=== PATIENT | female | born 1955 | race American Indian/Alaskan Native ===

== ENCOUNTER 2017-04-05 13:27 | Inpatient (IN) | payer OTHER ==
[2017-04-05 14:05] VITALS: BMI 47.0
--- NOTE | 2017-04-05 14:15 | C.PDOC ---
History Of Present Illness 61 year old female who presents to the ER with a complaint of swelling to the legs that has worsened over the last 3 weeks. Patient reports she has dyspnea on exertion and is unable to lay flat due to SOB. Patient was given lasix by her PMD last week with no relief to symptoms. Denies chest pain or weakness/ numbness to the lower extremities. Time Seen by Provider: 04/05/17 14:13 Chief Complaint (Nursing): Medical Clearance History Per: Patient History/Exam Limitations: no limitations Onset/Duration Of Symptoms: Days (3 weeks), Gradual Current Symptoms Are (Timing): Still Present Recent travel outside of the [place]: No Past Medical History Reviewed: Historical Data, Nursing Documentation, Vital Signs Vital Signs: Last Vital Signs Temp 97.3 F L 04/08/17 16:00 Pulse 63 04/08/17 16:00 Resp 20 04/08/17 16:00 BP 156/84 H 04/08/17 17:45 Pulse Ox 100 04/08/17 16:00 - Medical History PMH: Anemia, Anxiety, Bronchitis, Diabetes, Gastritis, HTN, Hypercholesterolemia , Pancreatitis, Peripheral Edema, Pneumonia, Chronic Kidney Disease Surgical History: Endoscopy - [facility] Procedures INSERT INFUSION DEV IN R INT JUGULAR VEIN, PERC (08/19/16) INSERTION OF ENDOTRACHEAL AIRWAY INTO TRACHEA, VIA OPENING (08/19/16) INTRODUCTION OF VASOPRESSOR INTO PERIPH VEIN, PERC APPROACH (08/19/16) PERFORMANCE OF CARDIAC OUTPUT, SINGLE, MANUAL (08/19/16) RESPIRATORY VENTILATION, GREATER THAN 96 CONSECUTIVE HOURS (08/19/16) Family History: States: Unknown Family Hx - Social History Hx Alcohol Use: No Hx Substance Use: No - Immunization History Hx Tetanus Toxoid Vaccination: No Hx Influenza Vaccination: No Hx Pneumococcal Vaccination: No Review Of Systems Constitutional: Negative for: Fever, Chills Cardiovascular: Negative for: Chest Pain, Palpitations Respiratory: Positive for: Shortness of Breath Gastrointestinal: Negative for: Nausea, Vomiting, Abdominal Pain, Diarrhea Genitourinary: Negative for: Dysuria Musculoskeletal: Positive for: Other (Swelling to lower extremities) Neurological: Negative for: Weakness, Numbness Physical Exam - Physical Exam Appears: Non-toxic Skin: Normal Color, Warm, Dry Head: Atraumatic, Normacephalic Oral Mucosa: Moist Chest: Symmetrical, No Tenderness Cardiovascular: Rhythm Regular, No Murmur Respiratory: Rales (Bilateral to bases), No Rhonchi, No Wheezing Gastrointestinal/Abdominal: Soft, No Tenderness Extremity: Normal ROM, No Tenderness, Pedal Edema (3+ pitting bilaterally) Neurological/Psych: Oriented x3, Normal Speech, Normal Cognition ED Course And Treatment - Laboratory Results Result Diagrams: 04/05/17 14:54 04/07/17 13:57 O2 Sat by Pulse Oximetry: 98 (Room air) Pulse Ox Interpretation: Normal Medical Decision Making Medical Decision Making: EKG, blood work, CXR, and urinalysis ordered. EKG: NSR 64, LBBB, no STEMI Disposition - Disposition Disposition: HOSPITALIZED Disposition Time: 16:01 Condition: STABLE - Clinical Impression Clinical Impression: Systolic dysfunction with acute on chronic heart failure - Scribe Statement The provider has reviewed the documentation as recorded by the Scribderrick Wetzel All medical record entries made by the Scribe were at my direction and personally dictated by me. I have reviewed the chart and agree that the record accurately reflects my personal performance of the history, physical exam, medical decision making, and the department course for this patient. I have also personally directed, reviewed, and agree with the discharge instructions and disposition.
[2017-04-05 15:00] LABS: BASO # 0.1 K/uL (0.0-0.2); BASO % 1.5 % (0.0-2.0); EOS # 0.1 K/uL (0.0-0.7); EOS % 2.1 % (0.0-4.0); HEMOGLOBIN 11.9 g/dL (11.0-16.0); LYMPH # 1.2 K/uL (1.0-4.3); LYMPH % 23.3 % (20.0-40.0); MEAN CELL VOLUME 83.6 fL (81.0-99.0); MEAN CORPUSCULAR HEMOGLOBIN 26.4 pg (27.0-31.0); MEAN CORPUSCULAR HGB CONC 31.6 g/dL (33.0-37.0); MEAN PLATELET VOLUME 8.7 fL (7.2-11.7); MONO # 0.7 K/uL (0.0-0.8); MONO % 12.9 % (0.0-10.0); NEUT # 3.2 K/uL (1.8-7.0); NEUT % 60.2 % (50.0-75.0); NRBC % 0.3 % (0.0-2.0); RBC 4.51 Mil/uL (3.80-5.20); RED CELL DISTRIBUTION WIDTH 17.1 % (11.5-14.5); WHITE BLOOD COUNT 5.3 K/uL (4.8-10.8)
[2017-04-05 15:13] LABS: GFR AFRICAN-AMERICAN > 60; GFR NON-AFRICAN AMERICAN > 60
[2017-04-05 15:14] LABS: ALB/GLOB RATIO 0.8 (1.0-2.1); ALT/SGPT 33 U/L (9-52); AST/SGOT 28 U/L (14-36); BLOOD UREA NITROGEN 17 mg/dL (7-17); CALCIUM 8.8 mg/dl (8.6-10.4)
[2017-04-05 15:21] LABS: B-TYPE NATRIURETIC PEPTIDE 2280 pg/mL (0-900)
--- NOTE | 2017-04-05 16:03 | RAD ---
HISTORY: fever COMPARISON: 09/05/2016 TECHNIQUE: Chest PA and lateral FINDINGS: LUNGS: Small right pleural effusion with patchy bibasilar airspace opacities. Venous congestion. Right hilar prominence. Biapical pleural thickening with upper lobe granulomatous changes. PLEURA: As above. CARDIOVASCULAR: Cardiomegaly. Tortuous ectatic aorta. OSSEOUS STRUCTURES: No significant abnormalities. VISUALIZED UPPER ABDOMEN: Normal. OTHER FINDINGS: None. IMPRESSION: Small right pleural effusion with patchy bibasilar airspace opacities. Venous congestion. Right hilar prominence. Biapical pleural thickening with upper lobe granulomatous changes.
[2017-04-05 19:12] LABS: SQUAMOUS EPITHIAL 1 /hpf (0-5); URINE BILIRUBIN NEGATIVE (NEGATIVE); URINE CLARITY Clear (Clear); URINE COLOR Straw (YELLOW); URINE GLUCOSE (UA) NORMAL (Normal); URINE LEUKOCYTE ESTERASE NEG Leu/uL (Negative); URINE NITRATE NEGATIVE (NEGATIVE); URINE PROTEIN NEGATIVE (NEGATIVE); URINE UROBILINOGEN NORMAL mg/dL (0.2-1.0)
[2017-04-05 19:20] LABS: URINE BLOOD TRACE (NEGATIVE)
[2017-04-05] MEDS: (Novolin R) Insulin Human Regular 100 units/ml vial SC SCH (22:49)
--- NOTE | 2017-04-05 23:13 | CP.PCM.HP ---
History of Present Illness - History of Present Illness History of Present Illness: Yon complain: leg edema, shortness of breath HPI: 61 year old AA female well known to me with h/o CAD, HTN, HYPERLIPIDEMIA, S /P ANGIOPLASTY , complint with diet, medication and follow up who presents to the ER with a complaint of swelling to the legs that has worsened over the last 3 weeks. Patient reports she has dyspnea on exertion and is unable to lay flat due to SOB. Patient was given lasix by me last week with no relief to symptoms. Denies chest pain or weakness/numbness to the lower extremities. Present on Admission - Present on Admission Any Indicators Present on Admission: Yes Review of Systems - Review of Systems Systems not reviewed;Unavailable: Acuity of Condition - Constitutional Constitutional: absent: As Per HPI, Anorexia, Chills, Daytime Sleepiness, Excessive Sweating, Fatigue, Fever, Frequent Falls, Headache, Increased Appetite , Lethargy, Malaise, Night Sweats, Snoring, Sleep Apnea, Weight Gain, Weight Loss, Weakness, Other - EENT Eyes: absent: As Per HPI, Blind Spots, Blurred Vision, Change in Vision, Decreased Night Vision, Diplopia, Discharge, Dry Eye, Exophthalmos, Floaters, Irritation, Itchy Eyes, Loss of Peripheral Vision, Pain, Photophobia, Requires Corrective Lenses, Sees Flashes, Spots in Vision, Tunnel Vision, Other Visual Disturbances, Loss of Vision, Other Nose/Mouth/Throat: absent: As Per HPI, Epistaxis, Nasal Congestion, Nasal Discharge, Nasal Obstruction, Nasal Trauma, Nose Pain, Post Nasal Drip, Sinus Pain, Sinus Pressure, Bleeding Gums, Change in Voice, Dental Pain, Dry Mouth, Dysphagia, Halitosis, Hoarsness, Lip Swelling, Mouth Lesions, Mouth Pain, Odynophagia, Sore Throat, Throat Swelling, Tongue Swelling, Facial Pain, Neck Pain, Neck Mass, Other - Cardiovascular Cardiovascular: Dyspnea, Dyspnea on Exertion, Leg Edema - Respiratory Respiratory: Dyspnea - Gastrointestinal Gastrointestinal: absent: As Per HPI, Abdominal Pain, Belching, Bloating, Change in Bowel Habits, Change in Stool Character, Coffee Ground Emesis, Constipation, Cramping, Diarrhea, Dyspepsia, Dysphagia, Early Satiety, Excessive Flatus, Fecal Incontinence, Heartburn, Hematemesis, Hematochezia, Loose Stools, Melena, Nausea, Odynophagia, Temesmus, Vomiting, Other - Genitourinary Genitourinary: Urinary Frequency. absent: As Per HPI, Change in Urinary Stream , Difficulty Urinating, Dysuria, Flank Pain, Hematuria, Pyuria, Nocturia, Urinary Incontinence, Urinary Hesitance, Urinary Urgency, Voiding Freq/Small Amts, Freq UTI, Hx Renal/Bladder Calculi, Hx /Renal Surgery, Bladder Distension, Other Past Patient History - Past Medical History & Family History Past Medical History?: Yes - Past Social History Smoking Status: Never Smoked - CARDIAC Hx Hypercholesterolemia: Yes Hx Hypertension: Yes Hx Peripheral Edema: Yes - PULMONARY Hx Bronchitis: Yes Hx Pneumonia: Yes - NEUROLOGICAL Hx Neurological Disorder: No - HEENT Hx HEENT Problems: No - RENAL Hx Chronic Kidney Disease: Yes - ENDOCRINE/METABOLIC Hx Endocrine Disorders: Yes Hx Diabetes Mellitus Type 1: Yes - HEMATOLOGICAL/ONCOLOGICAL Hx Anemia: Yes - INTEGUMENTARY Hx Dermatological Problems: Yes Other/Comment: HX: LEFT BREAST LUMPECTOMY X3 - MUSCULOSKELETAL/RHEUMATOLOGICAL Hx Musculoskeletal Disorders: Yes Hx Back Pain: Yes - GASTROINTESTINAL Hx Gastritis: Yes Hx Pancreatitis: Yes - GENITOURINARY/GYNECOLOGICAL Hx Genitourinary Disorders: Yes Other/Comment: PT. HAD LEFT KIDNEY SURGERY AND "I HAD A TUBE OUT MY BACK TO A BAG." - PSYCHIATRIC Hx Anxiety: Yes Hx Substance Use: No - SURGICAL HISTORY Hx Surgeries: Yes Other/Comment: "kidney surgery," lumpectomy breast left. Fibroid removal - ANESTHESIA Hx Anesthesia: Yes Hx Anesthesia Reactions: No Hx Malignant Hyperthermia: No Meds Allergies/Adverse Reactions: Allergies Allergy/AdvReac Type Severity Reaction Status Date / Time No Known Allergies Allergy Verified 04/05/17 14:04 Physical Exam - Constitutional Appears: No Acute Distress - Head Exam Head Exam: ATRAUMATIC, NORMAL INSPECTION, NORMOCEPHALIC - Eye Exam Eye Exam: EOMI, Normal appearance, PERRL Pupil Exam: NORMAL ACCOMODATION, PERRL - ENT Exam ENT Exam: Mucous Membranes Moist, Normal Exam - Respiratory Exam Respiratory Exam: Decreased Breath Sounds, Rales - Cardiovascular Exam Cardiovascular Exam: REGULAR RHYTHM - GI/Abdominal Exam GI & Abdominal Exam: Normal Bowel Sounds, Soft. absent: Tenderness - Extremities Exam Extremities exam: Positive for: pedal edema - Neurological Exam Neurological exam: Alert, CN II-XII Intact, Normal Gait, Oriented x3, Reflexes Normal - Psychiatric Exam Psychiatric exam: Normal Affect, Normal Mood - Skin Skin Exam: Erythema, Pallor, Warm Results - Vital Signs Recent Vital Signs: Last Vital Signs Temp 98.0 F 04/05/17 20:30 Pulse 60 04/05/17 20:30 Resp 20 04/05/17 20:30 BP 158/91 H 04/05/17 22:48 Pulse Ox 99 04/05/17 20:30 - Labs Result Diagrams: 04/05/17 14:54 04/05/17 14:54 Labs: Laboratory Results - last 24 hr 04/05/17 04/05/17 18:51 21:40 POC Glucose (mg/dL) 208 H Urine Color Straw Urine Clarity Clear Urine pH 6.0 Ur Specific [place] 1.006 Urine Protein Negative Urine Glucose (UA) Normal Urine Ketones Negative Urine Blood Trace H Urine Nitrate Negative Urine Bilirubin Negative Urine Urobilinogen Normal Ur Leukocyte Esterase Neg Urine WBC (Auto) < 1 Urine RBC (Auto) 1 Ur Squamous Epith Cells 1 Assessment & Plan (1) Pedal edema Status: Acute (2) CHF (congestive heart failure) Status: Acute (3) Coronary artery disease Status: Acute (4) Hypertension Status: Acute
[2017-04-06] MEDS: Albuterol-Ipratrop 3 mg / 0.5 (3 ml) UD INH SCH ×3 (07:46→20:33)
[2017-04-06] MEDS: (Novolin R) Insulin Human Regular 100 units/ml vial SC SCH ×4 (08:52→21:47)
[2017-04-06] MEDS: Enoxaparin 40 mg Syringe SC SCH (09:19)
[2017-04-06] MEDS: Potassium Chloride 20 mEq ER Tab PO SCH (09:20)
--- NOTE | 2017-04-06 11:45 | CP.PCM.CON ---
History of Present Illness - History of Present Illness History of Present Illness: I was asked to see patient by Dr. Nieves. Patient is a 61 year old female with h/o dilated cardiomyopathy, HTN who presents with dyspnea and edema. She has had previous history of CHF and has been managed medically. Patient reports progressive lwoer extremity edema. Symtpoms are assocaited with dyspnea. The patient denies chest pain. Review of Systems - Constitutional Constitutional: absent: As Per HPI, Anorexia, Chills, Daytime Sleepiness, Excessive Sweating, Fatigue, Fever, Frequent Falls, Headache, Increased Appetite , Lethargy, Malaise, Night Sweats, Snoring, Sleep Apnea, Weight Gain, Weight Loss, Weakness, Other - EENT Eyes: absent: As Per HPI, Blind Spots, Blurred Vision, Change in Vision, Decreased Night Vision, Diplopia, Discharge, Dry Eye, Exophthalmos, Floaters, Irritation, Itchy Eyes, Loss of Peripheral Vision, Pain, Photophobia, Requires Corrective Lenses, Sees Flashes, Spots in Vision, Tunnel Vision, Other Visual Disturbances, Loss of Vision, Other Ears: absent: As Per HPI, Decreased Hearing, Ear Discharge, Ear Pain, Tinnitus, Abnormal Hearing, Disequilibrium, Dizziness, Other Nose/Mouth/Throat: absent: As Per HPI, Epistaxis, Nasal Congestion, Nasal Discharge, Nasal Obstruction, Nasal Trauma, Nose Pain, Post Nasal Drip, Sinus Pain, Sinus Pressure, Bleeding Gums, Change in Voice, Dental Pain, Dry Mouth, Dysphagia, Halitosis, Hoarsness, Lip Swelling, Mouth Lesions, Mouth Pain, Odynophagia, Sore Throat, Throat Swelling, Tongue Swelling, Facial Pain, Neck Pain, Neck Mass, Other - Cardiovascular Cardiovascular: Dyspnea, Dyspnea on Exertion, Edema - Gastrointestinal Gastrointestinal: absent: As Per HPI, Abdominal Pain, Belching, Bloating, Change in Bowel Habits, Change in Stool Character, Coffee Ground Emesis, Constipation, Cramping, Diarrhea, Dyspepsia, Dysphagia, Early Satiety, Excessive Flatus, Fecal Incontinence, Heartburn, Hematemesis, Hematochezia, Loose Stools, Melena, Nausea, Odynophagia, Temesmus, Vomiting, Other - Genitourinary Genitourinary: absent: As Per HPI, Change in Urinary Stream, Difficulty Urinating, Dysuria, Flank Pain, Hematuria, Pyuria, Nocturia, Urinary Incontinence, Urinary Frequency, Urinary Hesitance, Urinary Urgency, Voiding Freq/Small Amts, Freq UTI, Hx Renal/Bladder Calculi, Hx /Renal Surgery, Bladder Distension, Other - Integumentary Integumentary: absent: As Per HPI, Acne, Alopecia, Bleeding Lesions, Change in Hair, Change in Nails, Change in Pigmentation, Changing Lesions, Dry Skin, Erythema, Furuncle, Hirsutism, Lesions, New Lesions, Non-Healing Lesions, Photosensitivity, Pruritus, Rash, Skin Pain, Skin Ulcer, Sores, Striae, Swelling , Unusual Bruising, Wounds, Jaundice, Other - Neurological Neurological: absent: As Per HPI, Abnormal Gait, Abnormal Hearing, Abnormal Movements, Abnormal Speech, Behavioral Changes, Burning Sensations, Confusion, Convulsions, Disequilibrium, Dizziness, Numbness, Focal Weakness, Frequent Falls , Headaches, Lack of Coordination, Loss of Vision, Memory Loss, Paresthesias, Radicular Pain, Restless Legs, Sensory Deficit, Syncope, Tingling, Tremor, Vertigo, Weakness, Other Visual Disturbances, Other - Psychiatric Psychiatric: absent: As Per HPI, Abnormal Sleep Pattern, Anhedonia, Anxiety, Auditory Hallucinations, Behavioral Changes, Change in Appetite, Change in Libido, Confusion, Depression, Difficulty Concentrating, Hallucinations, Homicidal Ideation, Hopelessness, Irritability, Memory Loss, Mood Swings, Panic Attacks, Paranoia, Suicidal Ideation, Visual Hallucinations, Tactile Hallucinations, Other - Endocrine Endocrine: absent: As Per HPI, Change in Body Appearance, Change in Libido, Cold Intolorance, Deepening of Voice, Excessive Sweating, Fatigue, Flushing, Heat Intolorance, Increase in Ring/Shoe/Hat Size, Palpitations, Polydipsia, Polyphagia, Polyuria, Other - Hematologic/Lymphatic Hematologic: absent: As Per HPI, Easy Bleeding, Easy Bruising, Lymphadenopathy, Other Past Patient History - Past Medical History & Family History Past Medical History?: Yes - Past Social History Smoking Status: Never Smoked - CARDIAC Hx Hypercholesterolemia: Yes Hx Hypertension: Yes Hx Peripheral Edema: Yes - PULMONARY Hx Bronchitis: Yes Hx Pneumonia: Yes - NEUROLOGICAL Hx Neurological Disorder: No - HEENT Hx HEENT Problems: No - RENAL Hx Chronic Kidney Disease: Yes - ENDOCRINE/METABOLIC Hx Endocrine Disorders: Yes Hx Diabetes Mellitus Type 1: Yes - HEMATOLOGICAL/ONCOLOGICAL Hx Anemia: Yes - INTEGUMENTARY Hx Dermatological Problems: Yes Other/Comment: HX: LEFT BREAST LUMPECTOMY X3 - MUSCULOSKELETAL/RHEUMATOLOGICAL Hx Musculoskeletal Disorders: Yes Hx Back Pain: Yes - GASTROINTESTINAL Hx Gastritis: Yes Hx Pancreatitis: Yes - GENITOURINARY/GYNECOLOGICAL Hx Genitourinary Disorders: Yes Other/Comment: PT. HAD LEFT KIDNEY SURGERY AND "I HAD A TUBE OUT MY BACK TO A BAG." - PSYCHIATRIC Hx Anxiety: Yes Hx Substance Use: No - SURGICAL HISTORY Hx Surgeries: Yes Other/Comment: "kidney surgery," lumpectomy breast left. Fibroid removal - ANESTHESIA Hx Anesthesia: Yes Hx Anesthesia Reactions: No Hx Malignant Hyperthermia: No Meds Allergies/Adverse Reactions: Allergies Allergy/AdvReac Type Severity Reaction Status Date / Time No Known Allergies Allergy Verified 04/05/17 14:04 - Medications Medications: Current Medications Acetaminophen (Tylenol 325mg Tab) 650 mg PO Q6 PRN PRN Reason: Pain, moderate (4-7) Albuterol/Ipratropium (Duoneb 3 Mg/0.5 Mg (3 Ml) Ud) 3 ml INH RQ6 [facility] Last Admin: 04/06/17 07:46 Dose: 3 ml Alprazolam (Xanax) 1 mg PO BID PRN PRN Reason: Anxiety Last Admin: 04/06/17 09:18 Dose: 1 mg Carvedilol (Coreg) 12.5 mg PO BID [facility] Last Admin: 04/06/17 09:20 Dose: 12.5 mg Enalapril Maleate (Vasotec) 20 mg PO DAILY [facility] Last Admin: 04/06/17 09:19 Dose: 20 mg Enoxaparin Sodium (Lovenox) 40 mg SC DAILY [facility] Last Admin: 04/06/17 09:19 Dose: 40 mg Furosemide (Lasix) 60 mg IVP Q12 [facility] Last Admin: 04/06/17 09:20 Dose: 60 mg Hydrochlorothiazide (Microzide) 12.5 mg PO DAILY [facility] Last Admin: 04/06/17 09:53 Dose: 12.5 mg Insulin Human Regular (Novolin R) 0 unit SC ACHS [facility] PRN Reason: Protocol Last Admin: 04/06/17 08:52 Dose: 2 unit Metformin HCl (Glucophage) 500 mg PO BIDCC [facility] Last Admin: 04/06/17 08:53 Dose: 500 mg Potassium Chloride (K-Dur 20 Meq Er Tab) 20 meq PO DAILY [facility] Last Admin: 04/06/17 09:20 Dose: 20 meq Rosuvastatin Calcium (Crestor) 5 mg PO HS [facility] Last Admin: 04/05/17 22:48 Dose: 5 mg Tramadol HCl (Ultram) 50 mg PO Q6 PRN PRN Reason: pain Last Admin: 04/06/17 09:17 Dose: 50 mg Physical Exam - Constitutional Appears: Non-toxic - Head Exam Head Exam: NORMAL INSPECTION - Eye Exam Eye Exam: Normal appearance - ENT Exam ENT Exam: Mucous Membranes Moist - Neck Exam Neck exam: Positive for: Normal Inspection - Respiratory Exam Respiratory Exam: NORMAL BREATHING PATTERN - Cardiovascular Exam Cardiovascular Exam: REGULAR RHYTHM - GI/Abdominal Exam GI & Abdominal Exam: Normal Bowel Sounds - Rectal Exam Rectal Exam: Deferred - Extremities Exam Extremities exam: Positive for: pedal edema - Back Exam Back exam: NORMAL INSPECTION - Neurological Exam Neurological exam: Alert, Oriented x3 - Psychiatric Exam Psychiatric exam: Normal Affect - Skin Skin Exam: Normal Color Results - Vital Signs Recent Vital Signs: Last Vital Signs Temp 97.3 F L 04/06/17 07:55 Pulse 65 04/06/17 09:06 Resp 18 04/06/17 07:55 BP 168/90 H 04/06/17 09:20 Pulse Ox 100 04/06/17 07:55 - Labs Result Diagrams: 04/05/17 14:54 04/05/17 14:54 Labs: Laboratory Results - last 24 hr 04/05/17 04/05/17 04/06/17 18:51 21:40 06:41 POC Glucose (mg/dL) 208 H 151 H Urine Color Straw Urine Clarity Clear Urine pH 6.0 Ur Specific [place] 1.006 Urine Protein Negative Urine Glucose (UA) Normal Urine Ketones Negative Urine Blood Trace H Urine Nitrate Negative Urine Bilirubin Negative Urine Urobilinogen Normal Ur Leukocyte Esterase Neg Urine WBC (Auto) < 1 Urine RBC (Auto) 1 Ur Squamous Epith Cells 1 - EKG Data EKG Interpreted by: Myself EKG shows normal: Sinus rhythm - EKG Data EKG Specific [place]eries Rhythm: NSR [place]/QRS: LBBB Assessment & Plan (1) Systolic dysfunction with acute on chronic heart failure Assessment and Plan: recommend continued diuresis and blood pressure control. may need increased coreg. Status: Acute (2) Hypertension Assessment and Plan: as above will titrate medical therapy. Status: Acute
--- NOTE | 2017-04-06 17:48 | CP.PCM.PN ---
Subjective - Date & Time of Evaluation Date of Evaluation: 04/06/17 Time of Evaluation: 09:00 - Subjective Subjective: Pt seen and examined, improving. also seen by cardiolgy, no chest pain now, less short of breath will continue diuresis. will increase enalapril. recommend repeat echocardiogram. If LV remains <35%, patient will benefit form BiVAICD Objective - Vital Signs/Intake and Output Vital Signs (last 24 hours): Temp Pulse Resp BP Pulse Ox 97.1 F L 61 18 133/75 100 04/06/17 15:45 04/06/17 15:45 04/06/17 15:45 04/06/17 15:45 04/06/17 15:45 Intake and Output: 04/06/17 04/06/17 06:59 18:59 Intake Total 240 Output Total 950 Balance -950 240 - Medications Medications: Current Medications Acetaminophen (Tylenol 325mg Tab) 650 mg PO Q6 PRN PRN Reason: Pain, moderate (4-7) Albuterol/Ipratropium (Duoneb 3 Mg/0.5 Mg (3 Ml) Ud) 3 ml INH RQ6 [facility] Last Admin: 04/06/17 13:22 Dose: 3 ml Alprazolam (Xanax) 1 mg PO BID PRN PRN Reason: Anxiety Last Admin: 04/06/17 09:18 Dose: 1 mg Carvedilol (Coreg) 12.5 mg PO BID [facility] Last Admin: 04/06/17 09:20 Dose: 12.5 mg Enalapril Maleate (Vasotec) 20 mg PO DAILY [facility] Last Admin: 04/06/17 09:19 Dose: 20 mg Enoxaparin Sodium (Lovenox) 40 mg SC DAILY [facility] Last Admin: 04/06/17 09:19 Dose: 40 mg Furosemide (Lasix) 60 mg IVP Q12 [facility] Last Admin: 04/06/17 09:20 Dose: 60 mg Hydrochlorothiazide (Microzide) 12.5 mg PO DAILY [facility] Last Admin: 04/06/17 09:53 Dose: 12.5 mg Insulin Human Regular (Novolin R) 0 unit SC ACHS [facility] PRN Reason: Protocol Last Admin: 04/06/17 13:17 Dose: 8 unit Metformin HCl (Glucophage) 500 mg PO BIDCC [facility] Last Admin: 04/06/17 08:53 Dose: 500 mg Potassium Chloride (K-Dur 20 Meq Er Tab) 20 meq PO DAILY [facility] Last Admin: 04/06/17 09:20 Dose: 20 meq Rosuvastatin Calcium (Crestor) 5 mg PO HS [facility] Last Admin: 04/05/17 22:48 Dose: 5 mg Tramadol HCl (Ultram) 50 mg PO Q6 PRN PRN Reason: pain Last Admin: 04/06/17 09:17 Dose: 50 mg - Constitutional Appears: No Acute Distress - Eye Exam Eye Exam: EOMI, Normal appearance, PERRL Pupil Exam: NORMAL ACCOMODATION, PERRL - Respiratory Exam Respiratory Exam: Rales - Cardiovascular Exam Cardiovascular Exam: REGULAR RHYTHM, +S1, +S2. absent: Murmur - GI/Abdominal Exam GI & Abdominal Exam: Soft, Normal Bowel Sounds. absent: Tenderness - Extremities Exam Extremities Exam: Full ROM, Normal Capillary Refill, Normal Inspection. absent : Joint Swelling, Pedal Edema Assessment and Plan (1) Pedal edema Status: Acute (2) CHF (congestive heart failure) Status: Acute (3) Coronary artery disease Status: Acute (4) Hypertension Status: Acute
[2017-04-07] MEDS: Albuterol-Ipratrop 3 mg / 0.5 (3 ml) UD INH SCH ×4 (01:39→19:30)
[2017-04-07] MEDS: (Novolin R) Insulin Human Regular 100 units/ml vial SC SCH ×4 (08:10→21:50)
--- NOTE | 2017-04-07 08:21 | CP.PCM.PN ---
Subjective - Date & Time of Evaluation Date of Evaluation: 04/07/17 Time of Evaluation: 07:15 - Subjective Subjective: christiana has no current chest pain. breathing is improving. Objective - Vital Signs/Intake and Output Vital Signs (last 24 hours): Temp Pulse Resp BP Pulse Ox 97.6 F 59 L 20 169/88 H 97 04/07/17 04:27 04/07/17 04:27 04/07/17 04:27 04/07/17 04:27 04/06/17 23:05 Intake and Output: 04/07/17 04/07/17 06:59 18:59 Intake Total 120 Balance 120 - Medications Medications: Current Medications Acetaminophen (Tylenol 325mg Tab) 650 mg PO Q6 PRN PRN Reason: Pain, moderate (4-7) Albuterol/Ipratropium (Duoneb 3 Mg/0.5 Mg (3 Ml) Ud) 3 ml INH RQ6 [facility] Last Admin: 04/07/17 07:32 Dose: 3 ml Alprazolam (Xanax) 1 mg PO BID PRN PRN Reason: Anxiety Last Admin: 04/06/17 21:46 Dose: 1 mg Carvedilol (Coreg) 12.5 mg PO BID ON LICENSE OF [facility] Last Admin: 04/06/17 18:22 Dose: 12.5 mg Enalapril Maleate (Vasotec) 20 mg PO BID ON LICENSE OF [facility] Enoxaparin Sodium (Lovenox) 40 mg SC DAILY ON [facility] OF [facility] Last Admin: 04/06/17 09:19 Dose: 40 mg Furosemide (Lasix) 60 mg IVP Q12 [facility] Last Admin: 04/06/17 21:46 Dose: 60 mg Hydrochlorothiazide (Microzide) 12.5 mg PO DAILY ON [facility] OF [facility] Last Admin: 04/06/17 09:53 Dose: 12.5 mg Insulin Human Regular (Novolin R) 0 unit SC ACHS [facility] PRN Reason: Protocol Last Admin: 04/07/17 08:10 Dose: Not Given Metformin HCl (Glucophage) 500 mg PO BIDCC ON LICENSE OF [facility] Last Admin: 04/06/17 18:21 Dose: 500 mg Potassium Chloride (K-Dur 20 Meq Er Tab) 20 meq PO DAILY [facility] Last Admin: 04/06/17 09:20 Dose: 20 meq Rosuvastatin Calcium (Crestor) 5 mg PO HS ON LICENSE OF [facility] Last Admin: 04/06/17 21:56 Dose: 5 mg Tramadol HCl (Ultram) 50 mg PO Q6 PRN PRN Reason: pain Last Admin: 04/07/17 01:06 Dose: 50 mg - Constitutional Appears: Non-toxic - Head Exam Head Exam: NORMAL INSPECTION - Eye Exam Eye Exam: Normal appearance - ENT Exam ENT Exam: Mucous Membranes Moist - Neck Exam Neck Exam: Full ROM - Respiratory Exam Respiratory Exam: Decreased Breath Sounds - Cardiovascular Exam Cardiovascular Exam: REGULAR RHYTHM - GI/Abdominal Exam GI & Abdominal Exam: Normal Bowel Sounds - Rectal Exam Rectal Exam: Deferred - Extremities Exam Extremities Exam: Pedal Edema - Back Exam Back Exam: NORMAL INSPECTION - Neurological Exam Neurological Exam: Alert - Psychiatric Exam Psychiatric exam: Normal Affect - Skin Skin Exam: Normal Color Assessment and Plan (1) Systolic dysfunction with acute on chronic heart failure Assessment & Plan: improving. will continue diuresis. will increase enalapril. recommend repeat echocardiogram. If LV remains <35%, patient will benefit form BiVAICD Status: Acute (2) Hypertension Assessment & Plan: increase enalapril. Status: Acute
[2017-04-07] MEDS: Potassium Chloride 20 mEq ER Tab PO SCH (09:04)
[2017-04-07] MEDS: Enoxaparin 40 mg Syringe SC SCH (09:05)
--- NOTE | 2017-04-07 14:02 | CARD ---
APPROVED REPORT EKG Measurement Heart [id number] <Conclusion> Normal sinus rhythm Left atrial enlargement Right superior axis deviation Left bundle branch block Abnormal ECG
[2017-04-07 14:13] LABS: GFR AFRICAN-AMERICAN > 60; GFR NON-AFRICAN AMERICAN > 60
[2017-04-07 14:14] LABS: BLOOD UREA NITROGEN 12 mg/dL (7-17); CALCIUM 8.9 mg/dl (8.6-10.4)
--- NOTE | 2017-04-07 17:36 | CARD ---
APPROVED REPORT EXAM: Two-dimensional and M-mode echocardiogram with Doppler and color Doppler. Other Information Quality : GoodRhythm : INDICATION Congestive Heart Failure DILATED CARDIOMYOPHATY RISK FACTORS Hypertension M-Mode DIMENSIONS RVDd2.57 (2.1-3.2cm)Left Atrium (MM)3.85 (2.5-4.0cm) IVSd0.59 (0.7-1.1cm)Aortic Root2.46 (2.2-3.7cm) LVDd5.45 (4.0-5.6cm)Aortic Cusp Exc.1.91 (1.5-2.0cm) PWd0.90 (0.7-1.1cm)FS (%) 17 % LVDs4.55 (2.0-3.8cm)LVEF (%)34 (>50%) Mitral Valve MV E Zwynxknh718.4cm/sMV A Cluqaikt58.8cm/sE/A ratio1.6 TDI E/Lateral E'0.0E/Medial E'0.0 Tricuspid Valve TR Peak [id number]/sTR Peak Gr.[id number] LEFT VENTRICLE The Left Ventricle is moderately dilated. There is normal left ventricular wall thickness. The systolic function is severely impaired. Anterior wall hypokinesis suggestive of coronary heart disease. Transmitral Doppler flow pattern is Grade II-pseudonormal filling dynamics. Elevated left atrial pressure by Tissue Doppler. RIGHT VENTRICLE The right ventricle is moderately dilated. Systolic function is moderately reduced by 2D views and TAPSE ATRIA The left atrium is moderately dilated. The right atrium is moderately dilated. AORTIC VALVE The aortic valve is normal in structure. No aortic regurgitation is present. MITRAL VALVE The mitral valve is normal in structure. There is no mitral valve regurgitation noted. TRICUSPID VALVE The tricuspid valve is normal in structure. There is moderate tricuspid regurgitation. Right ventricular systolic pressure is estimated at 67 mmHg. There is moderate-severe pulmonary hypertension. PULMONIC VALVE The pulmonary valve is probably normal in structure. There is mild to moderate pulmonic valvular regurgitation. GREAT VESSELS The aortic root is normal in size. Dilated IVC with poor inspiration collapse is consistent with elevated right atrial pressure. PERICARDIAL EFFUSION There is a trace pericardial effusion. <Conclusion> The Left Ventricle is moderately dilated. The systolic function is severely impaired. Anterior wall hypokinesis suggestive of coronary heart disease. Moderate distoilic dysfunction. Transmitral Doppler flow pattern is Grade II-pseudonormal filling dynamics. Elevated left atrial pressure by Tissue Doppler. Right ventricular systolic function is moderately reduced by 2D views and TAPSE Moderately dilated atrial cavities. Right ventricular systolic pressure is estimated at - 67 mmHg compatible with severe pulmonary hypertension. There is mild to moderate pulmonic valvular regurgitation. There is a trace pericardial effusion.
--- NOTE | 2017-04-07 22:46 | CP.PCM.PN ---
Subjective - Date & Time of Evaluation Date of Evaluation: 04/07/17 Time of Evaluation: 20:40 - Subjective Subjective: Pt seen and examined, B.P is high today, less edema, afebrile, less short of breath Objective - Vital Signs/Intake and Output Vital Signs (last 24 hours): Temp Pulse Resp BP Pulse Ox 97.4 F L 73 18 152/75 H 97 04/07/17 15:30 04/07/17 16:02 04/07/17 15:30 04/07/17 21:50 04/07/17 15:30 Intake and Output: 04/07/17 04/08/17 18:59 06:59 Intake Total 240 Balance 240 - Medications Medications: Current Medications Acetaminophen (Tylenol 325mg Tab) 650 mg PO Q6 PRN PRN Reason: Pain, moderate (4-7) Albuterol/Ipratropium (Duoneb 3 Mg/0.5 Mg (3 Ml) Ud) 3 ml INH RQ6 [facility] Last Admin: 04/07/17 19:30 Dose: 3 ml Alprazolam (Xanax) 1 mg PO BID PRN PRN Reason: Anxiety Last Admin: 04/07/17 21:58 Dose: 1 mg Carvedilol (Coreg) 12.5 mg PO BID [facility] Last Admin: 04/07/17 18:07 Dose: 12.5 mg Enalapril Maleate (Vasotec) 20 mg PO BID [facility] Last Admin: 04/07/17 18:05 Dose: 20 mg Enoxaparin Sodium (Lovenox) 40 mg SC DAILY [facility] Last Admin: 04/07/17 09:05 Dose: 40 mg Famotidine (Pepcid) 20 mg PO DAILY [facility] Last Admin: 04/07/17 12:19 Dose: 20 mg Furosemide (Lasix) 60 mg IVP Q12 [facility] Last Admin: 04/07/17 21:50 Dose: 60 mg Hydrochlorothiazide (Microzide) 12.5 mg PO DAILY [facility] Last Admin: 04/07/17 09:04 Dose: 12.5 mg Insulin Human Regular (Novolin R) 0 unit SC ACHS [facility] PRN Reason: Protocol Last Admin: 04/07/17 21:50 Dose: Not Given Metformin HCl (Glucophage) 500 mg PO BIDCC [facility] Last Admin: 04/07/17 18:05 Dose: 500 mg Potassium Chloride (K-Dur 20 Meq Er Tab) 20 meq PO DAILY [facility] Last Admin: 04/07/17 09:04 Dose: 20 meq Rosuvastatin Calcium (Crestor) 5 mg PO HS [facility] Last Admin: 04/07/17 21:50 Dose: 5 mg Tramadol HCl (Ultram) 50 mg PO Q6 PRN PRN Reason: pain Last Admin: 04/07/17 21:58 Dose: 50 mg - Labs Labs: 04/07/17 13:57 - Constitutional Appears: No Acute Distress - Head Exam Head Exam: ATRAUMATIC, NORMAL INSPECTION, NORMOCEPHALIC - Eye Exam Eye Exam: EOMI, Normal appearance, PERRL Pupil Exam: NORMAL ACCOMODATION, PERRL - Respiratory Exam Respiratory Exam: Decreased Breath Sounds, Rales - Cardiovascular Exam Cardiovascular Exam: REGULAR RHYTHM, +S1, +S2. absent: Murmur - GI/Abdominal Exam GI & Abdominal Exam: Soft, Normal Bowel Sounds. absent: Tenderness - Rectal Exam Rectal Exam: Deferred Assessment and Plan (1) Pedal edema Status: Acute (2) CHF (congestive heart failure) Status: Acute (3) Coronary artery disease Status: Acute (4) Hypertension Status: Acute
[2017-04-08] MEDS: Albuterol-Ipratrop 3 mg / 0.5 (3 ml) UD INH SCH ×4 (02:34→19:28)
[2017-04-08] MEDS: (Novolin R) Insulin Human Regular 100 units/ml vial SC SCH ×4 (08:11→21:13)
--- NOTE | 2017-04-08 10:07 | CP.PCM.CON ---
<Christian Pacheco - Last Filed: 04/08/17 14:48> History of Present Illness - History of Present Illness History of Present Illness: Consult note, EP, Dr. Greenberg This is a 61 year old female with past medical hx of CAD, HTN , HLD, S/P angioplasty, who presents to the ER with a complaint of leg swelling that has worsened over the last 3 weeks. Patient also reports shortness of breath on exertion and also orthopnea. Recently given lasix by PMD but there was no relief. Denies chest pain or weakness/numbness to the lower extremities. No fevers, chills, cough, vomiting, diarrhea, syncope. PMH: CAD, HTN, HLD, [place] PSH: angioplasty, left knee surgery, fibroid removal, hysterectomy Allergies: NKDA Social hx: Denies smoking, drinking, drug use. Born in . Lives in [place]. FH: HTN, DM, lung cancer in family Review of Systems - Review of Systems All systems: reviewed and no additional remarkable complaints except Review of Systems: neg except per hpi. Past Patient History - Past Medical History & Family History Past Medical History?: Yes - Past Social History Smoking Status: Never Smoked Chewing Tobacco Use: No Cigar Use: No Alcohol: None Drugs: Denies Home Situation {Lives}: With Family Domestic Violence: Negative - CARDIAC Hx Hypercholesterolemia: Yes Hx Hypertension: Yes - PULMONARY Hx Bronchitis: Yes Hx Pneumonia: Yes - NEUROLOGICAL Hx Neurological Disorder: No - HEENT Hx HEENT Problems: No - RENAL Hx Chronic Kidney Disease: Yes - ENDOCRINE/METABOLIC Hx Diabetes Mellitus Type 1: Yes - HEMATOLOGICAL/ONCOLOGICAL Hx Anemia: Yes - INTEGUMENTARY Hx Dermatological Problems: Yes Other/Comment: HX: LEFT BREAST LUMPECTOMY X3 - MUSCULOSKELETAL/RHEUMATOLOGICAL Hx Musculoskeletal Disorders: Yes Hx Back Pain: Yes - GASTROINTESTINAL Hx Gastritis: Yes Hx Pancreatitis: Yes - GENITOURINARY/GYNECOLOGICAL Hx Genitourinary Disorders: Yes Other/Comment: PT. HAD LEFT KIDNEY SURGERY AND "I HAD A TUBE OUT MY BACK TO A BAG." - PSYCHIATRIC Hx Anxiety: Yes Hx Substance Use: No - SURGICAL HISTORY Hx Surgeries: Yes Other/Comment: "kidney surgery," lumpectomy breast left. Fibroid removal - ANESTHESIA Hx Anesthesia: Yes Hx Anesthesia Reactions: No Hx Malignant Hyperthermia: No Meds Allergies/Adverse Reactions: Allergies Allergy/AdvReac Type Severity Reaction Status Date / Time No Known Allergies Allergy Verified 04/05/17 14:04 - Medications Medications: Current Medications Acetaminophen (Tylenol 325mg Tab) 650 mg PO Q6 PRN PRN Reason: Pain, moderate (4-7) Albuterol/Ipratropium (Duoneb 3 Mg/0.5 Mg (3 Ml) Ud) 3 ml INH RQ6 [facility] Last Admin: 04/08/17 07:29 Dose: 3 ml Alprazolam (Xanax) 1 mg PO BID PRN PRN Reason: Anxiety Last Admin: 04/07/17 21:58 Dose: 1 mg Carvedilol (Coreg) 12.5 mg PO BID [facility] Last Admin: 04/07/17 18:07 Dose: 12.5 mg Enalapril Maleate (Vasotec) 20 mg PO BID [facility] Last Admin: 04/07/17 18:05 Dose: 20 mg Enoxaparin Sodium (Lovenox) 40 mg SC DAILY [facility] Last Admin: 04/07/17 09:05 Dose: 40 mg Famotidine (Pepcid) 20 mg PO DAILY [facility] Last Admin: 04/07/17 12:19 Dose: 20 mg Furosemide (Lasix) 60 mg IVP Q12 [facility] Last Admin: 04/07/17 21:50 Dose: 60 mg Hydrochlorothiazide (Microzide) 12.5 mg PO DAILY [facility] Last Admin: 04/07/17 09:04 Dose: 12.5 mg Insulin Human Regular (Novolin R) 0 unit SC ACHS [facility] PRN Reason: Protocol Last Admin: 04/08/17 08:11 Dose: 4 unit Metformin HCl (Glucophage) 500 mg PO BIDCC [facility] Last Admin: 04/08/17 08:11 Dose: 500 mg Potassium Chloride (K-Dur 20 Meq Er Tab) 20 meq PO DAILY [facility] Last Admin: 04/07/17 09:04 Dose: 20 meq Rosuvastatin Calcium (Crestor) 5 mg PO HS [facility] Last Admin: 04/07/17 21:50 Dose: 5 mg Tramadol HCl (Ultram) 50 mg PO Q6 PRN PRN Reason: pain Last Admin: 04/08/17 08:10 Dose: 50 mg Physical Exam - Constitutional Appears: Non-toxic, No Acute Distress - Head Exam Head Exam: ATRAUMATIC, NORMAL INSPECTION, NORMOCEPHALIC - Eye Exam Eye Exam: EOMI - ENT Exam ENT Exam: Mucous Membranes Moist - Neck Exam Neck exam: Positive for: Full Rom, Normal Inspection - Respiratory Exam Respiratory Exam: NORMAL BREATHING PATTERN. absent: Respiratory Distress - Cardiovascular Exam Cardiovascular Exam: +S1, +S2 - GI/Abdominal Exam GI & Abdominal Exam: Normal Bowel Sounds, Soft. absent: Tenderness - Extremities Exam Extremities exam: Positive for: full ROM, normal inspection - Back Exam Back exam: NORMAL INSPECTION - Neurological Exam Neurological exam: Alert, Oriented x3 - Psychiatric Exam Psychiatric exam: Normal Affect, Normal Mood - Skin Skin Exam: Dry, Intact, Normal Color, Warm Results - Vital Signs Recent Vital Signs: Last Vital Signs Temp 98.0 F 04/08/17 08:33 Pulse 67 04/08/17 08:33 Resp 18 04/08/17 08:33 BP 151/86 H 04/08/17 08:33 Pulse Ox 98 04/07/17 23:25 - Labs Result Diagrams: 04/05/17 14:54 04/07/17 13:57 Labs: Laboratory Results - last 24 hr 04/07/17 04/07/17 04/07/17 11:22 13:57 16:34 Sodium 136 Potassium 3.7 Chloride 95 L Carbon Dioxide 32 H Anion Gap 13 BUN 12 Creatinine 0.8 Est GFR ( Amer) > 60 Est GFR (Non-Af Amer) > 60 POC Glucose (mg/dL) 223 H 285 H Random Glucose 196 H Calcium 8.9 04/07/17 04/08/17 20:53 06:18 Sodium Potassium Chloride Carbon Dioxide Anion Gap BUN Creatinine Est GFR ( Amer) Est GFR (Non-Af Amer) POC Glucose (mg/dL) 277 H 222 H Random Glucose Calcium Assessment & Plan - Assessment and Plan (Free Text) Assessment: A/P LV dx/left bundle branch block -plan for defibrillator tomorrow -asa 81 daily -continue enalapril -continue lasix -continue statin discussed with Dr. Greenberg <Carla Greenberg - Last Filed: 04/14/17 09:05> Results - Vital Signs Recent Vital Signs: Last Vital Signs Temp 97.8 F 04/09/17 13:35 Pulse 62 04/09/17 13:35 Resp 18 04/09/17 13:35 BP 164/85 H 04/09/17 13:35 Pulse Ox 100 04/09/17 13:35 - Labs Result Diagrams: 04/09/17 07:42 04/09/17 07:42 Attending/Attestation - Attestation I have personally seen and examined this patient.: Yes I have fully participated in the care of the patient.: Yes I have reviewed all pertinent clinical information: Yes Notes (Text): 04/14/17 09:05 Pt would benefit from Bi v ICD lbbb continue optimal chf meds
[2017-04-08] MEDS: Enoxaparin 40 mg Syringe SC SCH (10:27)
[2017-04-08] MEDS: Potassium Chloride 20 mEq ER Tab PO SCH (10:28)
[2017-04-08 11:52] LABS: INR 1.2; PROTHROMBIN TIME 13.9 SECONDS (9.7-12.2)
--- NOTE | 2017-04-08 23:09 | CP.PCM.PN ---
Subjective - Date & Time of Evaluation Date of Evaluation: 04/08/17 Time of Evaluation: 19:00 - Subjective Subjective: Patient seen and examined at bedside. No acute events overnight as per nursing. Patient continues to complain of bilateral LE swelling but reports it has improved since admission as has her SOB. She denied any acute complaints of chest pain, abd pain, bowel/bladder complaints. Objective - Vital Signs/Intake and Output Vital Signs (last 24 hours): Temp Pulse Resp BP Pulse Ox 97.3 F L 63 20 154/91 H 98 04/08/17 16:00 04/08/17 16:00 04/08/17 16:00 04/08/17 21:15 04/08/17 17:54 Intake and Output: 04/08/17 04/09/17 18:59 06:59 Intake Total 400 320 Output Total 750 Balance 400 -430 - Medications Medications: Current Medications Acetaminophen (Tylenol 325mg Tab) 650 mg PO Q6 PRN PRN Reason: Pain, moderate (4-7) Albuterol/Ipratropium (Duoneb 3 Mg/0.5 Mg (3 Ml) Ud) 3 ml INH RQ6 [facility] Last Admin: 04/08/17 19:28 Dose: 3 ml Alprazolam (Xanax) 1 mg PO BID PRN PRN Reason: Anxiety Last Admin: 04/08/17 10:28 Dose: 1 mg Amlodipine Besylate (Norvasc) 5 mg PO DAILY [facility] Aspirin (Aspirin Chewable) 81 mg PO DAILY [facility] Last Admin: 04/08/17 17:43 Dose: 81 mg Carvedilol (Coreg) 12.5 mg PO BID [facility] Last Admin: 04/08/17 17:45 Dose: 12.5 mg Enalapril Maleate (Vasotec) 20 mg PO BID [facility] Last Admin: 04/08/17 17:45 Dose: 20 mg Enoxaparin Sodium (Lovenox) 40 mg SC DAILY [facility] Last Admin: 04/08/17 10:27 Dose: 40 mg Famotidine (Pepcid) 20 mg PO DAILY [facility] Last Admin: 04/08/17 10:27 Dose: 20 mg Furosemide (Lasix) 60 mg IVP Q12 [facility] Last Admin: 04/08/17 21:15 Dose: 60 mg Hydrochlorothiazide (Microzide) 12.5 mg PO DAILY [facility] Last Admin: 04/08/17 10:27 Dose: 12.5 mg Insulin Human Regular (Novolin R) 0 unit SC ACHS [facility] PRN Reason: Protocol Last Admin: 04/08/17 21:13 Dose: Not Given Metformin HCl (Glucophage) 500 mg PO BIDCC [facility] Last Admin: 04/08/17 17:44 Dose: 500 mg Potassium Chloride (K-Dur 20 Meq Er Tab) 20 meq PO DAILY [facility] Last Admin: 04/08/17 10:28 Dose: 20 meq Rosuvastatin Calcium (Crestor) 5 mg PO HS [facility] Last Admin: 04/08/17 21:14 Dose: 5 mg Tramadol HCl (Ultram) 50 mg PO Q6 PRN PRN Reason: pain Last Admin: 04/08/17 21:17 Dose: 50 mg - Labs Labs: 04/07/17 13:57 PT 13.9 SECONDS (9.7-12.2) H 04/08/17 11:36 INR 1.2 04/08/17 11:36 APTT 35 SECONDS (21-34) H 04/08/17 11:36 - Constitutional Appears: No Acute Distress - Head Exam Head Exam: ATRAUMATIC, NORMAL INSPECTION, NORMOCEPHALIC - Eye Exam Eye Exam: EOMI, Normal appearance, PERRL Pupil Exam: NORMAL ACCOMODATION, PERRL - Respiratory Exam Respiratory Exam: Clear to Ausculation Bilateral, NORMAL BREATHING PATTERN - Cardiovascular Exam Cardiovascular Exam: Irregular Rhythm, +S1, +S2, Murmur - GI/Abdominal Exam GI & Abdominal Exam: Soft, Normal Bowel Sounds. absent: Tenderness Assessment and Plan (1) Pedal edema Status: Acute (2) CHF (congestive heart failure) [facility] Status: Acute (3) Coronary artery disease Status: Acute (4) Hypertension Status: Acute
[2017-04-09] MEDS: Albuterol-Ipratrop 3 mg / 0.5 (3 ml) UD INH SCH ×3 (01:43→13:18)
--- NOTE | 2017-04-09 07:44 | CP.PCM.PN ---
<Deidra Strauss - Last Filed: 04/09/17 11:59> Subjective - Date & Time of Evaluation Date of Evaluation: 04/09/17 Time of Evaluation: 08:00 - Subjective Subjective: Cardiology progress note for Dr. Greenberg Patient seen and examined at bedside. No acute events overnight as per nursing. Patient continues to complain of bilateral LE swelling but reports it has improved since admission as has her SOB. She denied any acute complaints of chest pain, abd pain, bowel/bladder complaints. Patient is NPO this AM and to be transferred to [place] for and AICD placement. Objective - Vital Signs/Intake and Output Vital Signs (last 24 hours): Temp Pulse Resp BP Pulse Ox 97.5 F L 76 20 123/66 99 04/08/17 23:25 04/09/17 03:52 04/08/17 23:25 04/09/17 04:10 04/08/17 23:25 Intake and Output: 04/09/17 04/09/17 06:59 18:59 Intake Total 320 Output Total 750 Balance -430 - Medications Medications: Current Medications Acetaminophen (Tylenol 325mg Tab) 650 mg PO Q6 PRN PRN Reason: Pain, moderate (4-7) Albuterol/Ipratropium (Duoneb 3 Mg/0.5 Mg (3 Ml) Ud) 3 ml INH RQ6 [facility] Last Admin: 04/09/17 07:29 Dose: 3 ml Alprazolam (Xanax) 1 mg PO BID PRN PRN Reason: Anxiety Last Admin: 04/09/17 01:29 Dose: 1 mg Amlodipine Besylate (Norvasc) 5 mg PO DAILY [facility] Aspirin (Aspirin Chewable) 81 mg PO DAILY [facility] Last Admin: 04/08/17 17:43 Dose: 81 mg Carvedilol (Coreg) 12.5 mg PO BID [facility] Last Admin: 04/08/17 17:45 Dose: 12.5 mg Enalapril Maleate (Vasotec) 20 mg PO BID [facility] Last Admin: 04/08/17 17:45 Dose: 20 mg Enoxaparin Sodium (Lovenox) 40 mg SC DAILY [facility] Last Admin: 04/08/17 10:27 Dose: 40 mg Famotidine (Pepcid) 20 mg PO DAILY [facility] Last Admin: 04/08/17 10:27 Dose: 20 mg Furosemide (Lasix) 60 mg IVP Q12 [facility] Last Admin: 04/08/17 21:15 Dose: 60 mg Hydrochlorothiazide (Microzide) 12.5 mg PO DAILY [facility] Last Admin: 04/08/17 10:27 Dose: 12.5 mg Insulin Human Regular (Novolin R) 0 unit SC ACHS [facility] PRN Reason: Protocol Last Admin: 04/08/17 21:13 Dose: Not Given Metformin HCl (Glucophage) 500 mg PO BIDCC [facility] Last Admin: 04/08/17 17:44 Dose: 500 mg Potassium Chloride (K-Dur 20 Meq Er Tab) 20 meq PO DAILY [facility] Last Admin: 04/08/17 10:28 Dose: 20 meq Rosuvastatin Calcium (Crestor) 5 mg PO HS [facility] Last Admin: 04/08/17 21:14 Dose: 5 mg Tramadol HCl (Ultram) 50 mg PO Q6 PRN PRN Reason: pain Last Admin: 04/08/17 21:17 Dose: 50 mg - Labs Labs: 04/07/17 13:57 PT 13.9 SECONDS (9.7-12.2) H 04/08/17 11:36 INR 1.2 04/08/17 11:36 APTT 35 SECONDS (21-34) H 04/08/17 11:36 - Constitutional Appears: No Acute Distress, Chronically Ill - Eye Exam Eye Exam: EOMI, Normal appearance. absent: Conjunctival injection, Scleral icterus Pupil Exam: NORMAL ACCOMODATION - ENT Exam ENT Exam: Mucous Membranes Moist - Respiratory Exam Respiratory Exam: NORMAL BREATHING PATTERN. absent: Accessory Muscle Use, Respiratory Distress - Cardiovascular Exam Cardiovascular Exam: REGULAR RHYTHM, +S1, +S2. absent: Bradycardia, Tachycardia - GI/Abdominal Exam GI & Abdominal Exam: Soft, Normal Bowel Sounds. absent: Tenderness - Extremities Exam Extremities Exam: Pedal Edema - Neurological Exam Neurological Exam: Alert, Awake, Oriented x3 - Psychiatric Exam Psychiatric exam: Anxious, Normal Affect - Skin Skin Exam: Dry, Intact, Normal Color, Warm Assessment and Plan - Assessment and Plan (Free Text) Assessment: 61yo AA female PMHx CAD, HTN, HLD, S/P angioplasty, who presented to ED with worsening leg swelling and SOB for 3 days. Cardiology was consulted for EF 34% Plan: -EKG 04/05: NSR with L atrial enlargement, R superior axis deviation, LBBB HR 68bpm -Echo 04/07 LV moderately dilated. Systolic function is severely impaired. Anterior wall hypokinesis suggestive of coronary heart disease. Moderate diastolic dysfunction. Transmitral Doppler flow pattern is Grade II pseudonormal filling dynamics. Elevated L atrial pressure RV systolic function is moderately reduced by 2D views and TAPSE Moderately dilated atrial cavities RV systolic pressure is estimated at 67mmHg compatible with pulmonary hypertension Mild to moderate pulmonic valvular regurgitation Trace pericardial effusion -proBNP 2280 -Continue current management Norvasc 5mg po daily ASA 81mg po daily Coreg 12.5mg po bid Vasotec 20mg po bid HCTZ 12.5mg po daily Lasix 60mg ivp daily Crestor 5mg po hs -Patient to have AICD placed today at [facility] and will return post procedure Patient was kept NPO this AM and VTE ppx was held Case discussed with Dr. Yari Strauss PGY2 <Carla Greenberg - Last Filed: 04/10/17 07:01> Objective - Vital Signs/Intake and Output Vital Signs (last 24 hours): Temp Pulse Resp BP Pulse Ox 97.8 F 62 18 164/85 H 100 04/09/17 13:35 04/09/17 13:35 04/09/17 13:35 04/09/17 13:35 04/09/17 13:35 - Labs Labs: 04/09/17 07:42 04/09/17 07:42 PT 13.9 SECONDS (9.7-12.2) H 04/08/17 11:36 INR 1.2 04/08/17 11:36 APTT 35 SECONDS (21-34) H 04/08/17 11:36 Attending/Attestation - Attestation I have personally seen and examined this patient.: Yes I have fully participated in the care of the patient.: Yes I have reviewed all pertinent clinical information, including history, physical exam and plan: Yes Notes (Text): 04/10/17 07:01 less edema LBBB low ef despite optimal chf tx will transfer for biV ICD
[2017-04-09 07:56] LABS: BASO # 0.1 K/uL (0.0-0.2); EOS # 0.2 K/uL (0.0-0.7); EOS % 3.5 % (0.0-4.0); HEMOGLOBIN 11.8 g/dL (11.0-16.0); NEUT # 2.6 K/uL (1.8-7.0); RBC 4.47 Mil/uL (3.80-5.20)
[2017-04-09 08:12] LABS: BASO % 1.4 % (0.0-2.0); LYMPH # 1.5 K/uL (1.0-4.3); LYMPH % 30.6 % (20.0-40.0); MEAN CELL VOLUME 82.3 fL (81.0-99.0); MEAN CORPUSCULAR HEMOGLOBIN 26.3 pg (27.0-31.0); MEAN PLATELET VOLUME 8.7 fL (7.2-11.7); MONO # 0.5 K/uL (0.0-0.8); MONO % 11.2 % (0.0-10.0); NEUT % 53.3 % (50.0-75.0); NRBC % 0.1 % (0.0-2.0); RED CELL DISTRIBUTION WIDTH 16.6 % (11.5-14.5); WHITE BLOOD COUNT 4.8 K/uL (4.8-10.8)
[2017-04-09 08:14] VITALS: RESP 18; O2SAT 100
--- NOTE | 2017-04-09 08:16 | CP.PCM.PN ---
Subjective - Date & Time of Evaluation Date of Evaluation: 04/09/17 Time of Evaluation: 08:10 - Subjective Subjective: no new complaints Objective - Vital Signs/Intake and Output Vital Signs (last 24 hours): Temp Pulse Resp BP Pulse Ox 97.3 F L 69 18 151/82 H 100 04/09/17 07:20 04/09/17 07:20 04/09/17 07:20 04/09/17 07:20 04/09/17 07:20 Intake and Output: 04/09/17 04/09/17 06:59 18:59 Intake Total 320 Output Total 750 Balance -430 - Medications Medications: Current Medications Acetaminophen (Tylenol 325mg Tab) 650 mg PO Q6 PRN PRN Reason: Pain, moderate (4-7) Albuterol/Ipratropium (Duoneb 3 Mg/0.5 Mg (3 Ml) Ud) 3 ml INH RQ6 [facility] Last Admin: 04/09/17 07:29 Dose: 3 ml Alprazolam (Xanax) 1 mg PO BID PRN PRN Reason: Anxiety Last Admin: 04/09/17 01:29 Dose: 1 mg Amlodipine Besylate (Norvasc) 5 mg PO DAILY [facility] Aspirin (Aspirin Chewable) 81 mg PO DAILY [facility] Last Admin: 04/08/17 17:43 Dose: 81 mg Carvedilol (Coreg) 12.5 mg PO BID [facility] Last Admin: 04/08/17 17:45 Dose: 12.5 mg Enalapril Maleate (Vasotec) 20 mg PO BID [facility] Last Admin: 04/08/17 17:45 Dose: 20 mg Enoxaparin Sodium (Lovenox) 40 mg SC DAILY [facility] Last Admin: 04/08/17 10:27 Dose: 40 mg Famotidine (Pepcid) 20 mg PO DAILY [facility] Last Admin: 04/08/17 10:27 Dose: 20 mg Furosemide (Lasix) 60 mg IVP Q12 [facility] Last Admin: 04/08/17 21:15 Dose: 60 mg Hydrochlorothiazide (Microzide) 12.5 mg PO DAILY [facility] Last Admin: 04/08/17 10:27 Dose: 12.5 mg Insulin Human Regular (Novolin R) 0 unit SC ACHS JAMEY PRN Reason: Protocol Last Admin: 04/08/17 21:13 Dose: Not Given Metformin HCl (Glucophage) 500 mg PO BIDCC [facility] Last Admin: 04/08/17 17:44 Dose: 500 mg Potassium Chloride (K-Dur 20 Meq Er Tab) 20 meq PO DAILY [facility] Last Admin: 04/08/17 10:28 Dose: 20 meq Rosuvastatin Calcium (Crestor) 5 mg PO HS [facility] Last Admin: 04/08/17 21:14 Dose: 5 mg Tramadol HCl (Ultram) 50 mg PO Q6 PRN PRN Reason: pain Last Admin: 04/08/17 21:17 Dose: 50 mg - Labs Labs: 04/09/17 07:42 04/07/17 13:57 PT 13.9 SECONDS (9.7-12.2) H 04/08/17 11:36 INR 1.2 04/08/17 11:36 APTT 35 SECONDS (21-34) H 04/08/17 11:36 - Constitutional Appears: Non-toxic - Head Exam Head Exam: NORMAL INSPECTION - Eye Exam Eye Exam: Normal appearance - ENT Exam ENT Exam: Mucous Membranes Moist - Neck Exam Neck Exam: Full ROM - Respiratory Exam Respiratory Exam: NORMAL BREATHING PATTERN - Cardiovascular Exam Cardiovascular Exam: REGULAR RHYTHM - GI/Abdominal Exam GI & Abdominal Exam: Normal Bowel Sounds - Rectal Exam Rectal Exam: Deferred - Extremities Exam Extremities Exam: Pedal Edema - Back Exam Back Exam: NORMAL INSPECTION - Neurological Exam Neurological Exam: Alert - Psychiatric Exam Psychiatric exam: Normal Affect - Skin Skin Exam: Normal Color Assessment and Plan (1) Systolic dysfunction with acute on chronic heart failure Assessment & Plan: patient is stable for BiV AICD today. Status: Acute (2) Hypertension Status: Acute
[2017-04-09 08:30] LABS: BLOOD UREA NITROGEN 13 mg/dL (7-17); GFR AFRICAN-AMERICAN > 60; GFR NON-AFRICAN AMERICAN > 60
[2017-04-09 08:31] LABS: CALCIUM 8.6 mg/dl (8.6-10.4)
[2017-04-09] MEDS: (Novolin R) Insulin Human Regular 100 units/ml vial SC SCH ×2 (08:36→11:19)
[2017-04-09] MEDS: Potassium Chloride 20 mEq ER Tab PO SCH (09:34)
[2017-04-09] MEDS ORDERED: Potassium Chloride 20 mEq/15 ml LIQ UD PO STA (10:19)
[2017-04-09 13:36] VITALS: BP 164/85; PULSE 62; TEMP 97.8
--- NOTE | 2017-04-09 22:58 | CP.PCM.DIS ---
Provider - Provider Date of Admission: 04/05/17 16:01 Attending physician: Rush Nieves MD Time Spent in preparation of Discharge (in minutes): 54 Diagnosis - Discharge Diagnosis (1) Pedal edema Status: Acute (2) CHF (congestive heart failure) Status: Acute (3) Coronary artery disease Status: Acute (4) Hypertension Status: Acute Hospital Course - Lab Results Lab Results: Micro Results 04/05/17 Unknown Blood-Venous Blood Culture - Preliminary NO GROWTH AFTER 4 DAYS 04/05/17 Unknown Urine Urine Culture - Final 10-50,000 CFU/ML. MULTIPLE SPECIES. PROBABLE CONTAMINATION. Most Recent Lab Values WBC 4.8 K/uL (4.8-10.8) 04/09/17 07:42 RBC 4.47 Mil/uL (3.80-5.20) 04/09/17 07:42 Hgb 11.8 g/dL (11.0-16.0) 04/09/17 07:42 Hct 36.8 % (34.0-47.0) 04/09/17 07:42 MCV 82.3 fL (81.0-99.0) 04/09/17 07:42 MCH 26.3 pg (27.0-31.0) L 04/09/17 07:42 MCHC 32.0 g/dL (33.0-37.0) L 04/09/17 07:42 RDW 16.6 % (11.5-14.5) H 04/09/17 07:42 Plt Count 237 K/uL (130-400) 04/09/17 07:42 MPV 8.7 fL (7.2-11.7) 04/09/17 07:42 Neut % (Auto) 53.3 % (50.0-75.0) 04/09/17 07:42 Lymph % (Auto) 30.6 % (20.0-40.0) 04/09/17 07:42 [place] % (Auto) 11.2 % (0.0-10.0) H 04/09/17 07:42 Eos % (Auto) 3.5 % (0.0-4.0) 04/09/17 07:42 Baso % (Auto) 1.4 % (0.0-2.0) 04/09/17 07:42 Neut # 2.6 K/uL (1.8-7.0) 04/09/17 07:42 Lymph # 1.5 K/uL (1.0-4.3) 04/09/17 07:42 [place] # 0.5 K/uL (0.0-0.8) 04/09/17 07:42 Eos # 0.2 K/uL (0.0-0.7) 04/09/17 07:42 Baso # 0.1 K/uL (0.0-0.2) 04/09/17 07:42 PT 13.9 SECONDS (9.7-12.2) H 04/08/17 11:36 INR 1.2 04/08/17 11:36 APTT 35 SECONDS (21-34) H 04/08/17 11:36 Sodium 135 mmol/L (132-148) 04/09/17 07:42 Potassium 3.2 mmol/L (3.6-5.2) L 04/09/17 07:42 Chloride 94 mmol/L (98-107) L 04/09/17 07:42 Carbon Dioxide 33 mmol/L (22-30) H 04/09/17 07:42 Anion Gap 11 (10-20) 04/09/17 07:42 BUN 13 mg/dL (7-17) 04/09/17 07:42 Creatinine 0.8 MG/DL (0.7-1.2) 04/09/17 07:42 Est GFR ( Amer) > 60 04/09/17 07:42 Est GFR (Non-Af Amer) > 60 04/09/17 07:42 POC Glucose (mg/dL) 186 mg/dL (65-110) H 04/09/17 10:45 Random Glucose 194 mg/dL (65-105) H 04/09/17 07:42 Calcium 8.6 mg/dl (8.6-10.4) 04/09/17 07:42 Total Bilirubin 0.9 mg/dL (0.2-1.3) 04/05/17 14:54 AST 28 U/L (14-36) 04/05/17 14:54 ALT 33 U/L (9-52) 04/05/17 14:54 Alkaline Phosphatase 165 U/L (38-126) H D 04/05/17 14:54 Troponin I 0.0160 ng/mL (0.00-0.120) 04/05/17 14:54 NT-Pro-B Natriuret Pep 2280 pg/mL (0-900) H 04/05/17 14:54 Total Protein 6.8 g/dL (6.3-8.3) 04/05/17 14:54 Albumin 3.0 g/dL (3.5-5.0) L 04/05/17 14:54 Globulin 3.8 gm/dL (2.2-3.9) 04/05/17 14:54 Albumin/Globulin Ratio 0.8 (1.0-2.1) L 04/05/17 14:54 Urine Color Straw (YELLOW) 04/05/17 18:51 Urine Clarity Clear (Clear) 04/05/17 18:51 Urine pH 6.0 (5.0-8.0) 04/05/17 18:51 Ur Specific [place] 1.006 (1.003-1.030) 04/05/17 18:51 Urine Protein Negative mg/dL (NEGATIVE) 04/05/17 18:51 Urine Glucose (UA) Normal mg/dL (Normal) 04/05/17 18:51 Urine Ketones Negative mg/dL (NEGATIVE) 04/05/17 18:51 Urine Blood Trace (NEGATIVE) H 04/05/17 18:51 Urine Nitrate Negative (NEGATIVE) 04/05/17 18:51 Urine Bilirubin Negative (NEGATIVE) 04/05/17 18:51 Urine Urobilinogen Normal mg/dL (0.2-1.0) 04/05/17 18:51 Ur Leukocyte Esterase Neg Magui/uL (Negative) 04/05/17 18:51 Urine WBC (Auto) < 1 /hpf (0-5) 04/05/17 18:51 Urine RBC (Auto) 1 /hpf (0-3) 04/05/17 18:51 Ur Squamous Epith Cells 1 /hpf (0-5) 04/05/17 18:51 - Hospital Course Hospital Course: Pt is discharged to [facility] for BiV AICD placement today. Discharge Exam - Head Exam Head Exam: NORMAL INSPECTION - Eye Exam Eye Exam: EOMI, Normal appearance, PERRL Pupil Exam: NORMAL ACCOMODATION, PERRL - Respiratory Exam Respiratory Exam: Clear to PA & Lateral, NORMAL BREATHING PATTERN - Cardiovascular Exam Cardiovascular Exam: Irregular Rhythm, +S1, +S2 - GI/Abdominal Exam GI & Abdominal Exam: Normal Bowel Sounds Discharge Plan - Follow Up Plan Condition: STABLE Disposition: Trans to Other Acute Care Hosp
--- NOTE | 2017-04-10 06:37 | CP.PCM.PN ---
Subjective - Date & Time of Evaluation Date of Evaluation: 04/10/17 Time of Evaluation: 06:37 Objective - Vital Signs/Intake and Output Vital Signs (last 24 hours): Temp Pulse Resp BP Pulse Ox 97.8 F 62 18 164/85 H 100 04/09/17 13:35 04/09/17 13:35 04/09/17 13:35 04/09/17 13:35 04/09/17 13:35 - Labs Labs: 04/09/17 07:42 04/09/17 07:42 PT 13.9 SECONDS (9.7-12.2) H 04/08/17 11:36 INR 1.2 04/08/17 11:36 APTT 35 SECONDS (21-34) H 04/08/17 11:36
== END 2017-04-09 13:59 | disposition short-term general hospital (02) | DRG 544 ==
LOC: C.ER 13:27 → C.9E 16:01 → C.6T 19:37
PROVIDERS: ADMIT Internal Medicine; ATTEND Internal Medicine
DX: I13.0 Hypertensive heart and chronic kidney disease with heart failure and stage 1 through stage 4 chronic kidney disease, or unspecified chronic kidney disease (principal); I50.23 Acute on chronic systolic (congestive) heart failure; E11.22 Type 2 diabetes mellitus with diabetic chronic kidney disease; I42.0 Dilated cardiomyopathy; N18.9 Chronic kidney disease, unspecified; I44.7 Left bundle-branch block, unspecified; Z79.4 Long term (current) use of insulin; Z87.01 Personal history of pneumonia (recurrent); I25.10 Atherosclerotic heart disease of native coronary artery without angina pectoris; E78.5 Hyperlipidemia, unspecified; Z68.37 Body mass index [BMI] 37.0-37.9, adult; R60.0 Localized edema

== ENCOUNTER 2017-06-22 13:48 | Emergency (ER) | payer OTHER ==
[2017-06-22 13:49] VITALS: BMI 47.0
[2017-06-22 13:59] VITALS: PULSE 60
--- NOTE | 2017-06-22 15:00 | C.PDOC ---
History Of Present Illness 62 year old femalehx of chf, pacemaker, presents to the ED for evaluation of shortness of breath and bilateral leg swelling. Patient notes she has been experiencing bilateral leg pain and swelling for a few weeks. Patient underwent pacemaker placement 4 weeks ago. She denies fever, chills or any other complaints at this time. noted pt was admitted for chf previously. noted recent echo with severe lv dysfunction. Time Seen by Provider: 06/22/17 14:01 Chief Complaint (Nursing): Lower Extremity Problem/Injury History Per: Patient History/Exam Limitations: no limitations Onset/Duration Of Symptoms: Days Current Symptoms Are (Timing): Still Present Additional History Per: Patient - Ankle/Foot Description Of Injury: denies: Fell, Struck With Object, Struck Against Object, Twisted, Laceration Past Medical History Reviewed: Historical Data, Nursing Documentation, Vital Signs Vital Signs: Last Vital Signs Temp 97.7 F 06/22/17 16:30 Pulse 60 06/22/17 16:30 Resp 16 06/22/17 16:30 BP 154/88 H 06/22/17 16:30 Pulse Ox 96 06/22/17 16:43 - Medical History PMH: Anemia, Anxiety, Bronchitis, Diabetes, Gastritis, HTN, Hypercholesterolemia , Pancreatitis, Peripheral Edema, Pneumonia, Chronic Kidney Disease Surgical History: Endoscopy - [facility] Procedures INSERT INFUSION DEV IN R INT JUGULAR VEIN, PERC (08/19/16) INSERTION OF ENDOTRACHEAL AIRWAY INTO TRACHEA, VIA OPENING (08/19/16) INTRODUCTION OF VASOPRESSOR INTO PERIPH VEIN, PERC APPROACH (08/19/16) PERFORMANCE OF CARDIAC OUTPUT, SINGLE, MANUAL (08/19/16) RESPIRATORY VENTILATION, GREATER THAN 96 CONSECUTIVE HOURS (08/19/16) Family History: States: Unknown Family Hx - Social History Hx Alcohol Use: No Hx Substance Use: No - Immunization History Hx Tetanus Toxoid Vaccination: No Hx Influenza Vaccination: No Hx Pneumococcal Vaccination: No Review Of Systems Constitutional: Negative for: Fever, Chills Respiratory: Positive for: Shortness of Breath Musculoskeletal: Positive for: Leg Pain (with swelling bilaterally ) Physical Exam - Physical Exam Appears: Non-toxic, No Acute Distress Skin: Normal Color, Warm, Dry Head: Atraumatic, Normacephalic Eye(s): bilateral: Normal Inspection Oral Mucosa: Moist Neck: Supple Chest: Symmetrical, No Deformity, No Tenderness Cardiovascular: Rhythm Regular, No Murmur Respiratory: Rales (bilaterally ), No Rhonchi, No Wheezing Extremity: Normal ROM, Capillary Refill (less than 2 seconds ), Other (3+ edema bilaterally ) Pulses: Left Dorsalis Pedis: Normal, Right Dorsalis Pedis: Normal Neurological/Psych: Oriented x3, Normal Speech, Normal Cognition Gait: Steady ED Course And Treatment - Laboratory Results Result Diagrams: 06/22/17 15:44 06/22/17 15:44 ECG Rhythm: AV Paced Rate From EC O2 Sat by Pulse Oximetry: 96 (on RA) Pulse Ox Interpretation: Normal Medical Decision Making Medical Decision Making: Impression: 62 year old female with shortness of breath and b/l leg swelling suspect chf excerbation Plan: * labs * CXR * EKG * reassess and disposition Progress: labs, EKG, and CXR ordered and reviewed. 430: pt reassessed; requested pt be admitted for further w/u, iv lasix, further imaging. pt refusing, requesting d/c to take care of . signs AMA The patient declines to have further medical evaluation and treatment and wishes to leave the Emergency Department. This action is against my medical advice to the patient, and with informed refusal. The patient was told that evaluation and treatment are necessary and a full explanation of the rationale was given. The risks of leaving were explained to the patient and include, but are not limited to, worsening of known or currently unknown conditions, permanent disability and from undiagnosed or untreated conditions. The patient has the capacity to make this informed decision and understands the clinical situation and my explanation of the risks of leaving. The patient voluntarily accepts these risks, and a signed AMA form documenting our conversation was obtained. The patient was given the opportunity to ask questions and reconsider. The patient was encouraged to return to the Emergency Department at any time for further care. Disposition - Disposition Disposition: AGAINST MEDICAL ADVICE Disposition Time: 16:35 Condition: UNKNOWN Additional Instructions: please return to er with worsening symptoms or concerns. Instructions: Pulmonary Edema (ED), Leg Edema (ED), Against Medical Advice (ED) Forms: [employer] (Montenegrin) - Clinical Impression Clinical Impression: Leg swelling, CHF (congestive heart failure) - Scribe Statement The provider has reviewed the documentation as recorded by the Scribe (Neli Palm) Provider Attestation: All medical record entries made by the Scribe were at my direction and personally dictated by me. I have reviewed the chart and agree that the record accurately reflects my personal performance of the history, physical exam, medical decision making, and the department course for this patient. I have also personally directed, reviewed, and agree with the discharge instructions and disposition.
[2017-06-22 15:54] LABS: BASO # 0.1 K/uL (0.0-0.2); BASO % 1.4 % (0.0-2.0); EOS # 0.1 K/uL (0.0-0.7); EOS % 2.2 % (0.0-4.0); HEMATOCRIT 38.7 % (34.0-47.0); LYMPH # 1.2 K/uL (1.0-4.3); LYMPH % 25.6 % (20.0-40.0); MEAN CELL VOLUME 82.2 fL (81.0-99.0); MEAN CORPUSCULAR HEMOGLOBIN 26.8 pg (27.0-31.0); MEAN CORPUSCULAR HGB CONC 32.6 g/dL (33.0-37.0); MEAN PLATELET VOLUME 8.9 fL (7.2-11.7); MONO # 0.6 K/uL (0.0-0.8); MONO % 11.7 % (0.0-10.0); NRBC % 0.2 % (0.0-2.0); RED CELL DISTRIBUTION WIDTH 18.3 % (11.5-14.5); WHITE BLOOD COUNT 4.8 K/uL (4.8-10.8)
[2017-06-22 15:59] LABS: RBC URINE 14 /hpf (0-3); URINE BILIRUBIN NEGATIVE (NEGATIVE); URINE BLOOD 1+ (NEGATIVE); URINE COLOR Amber (YELLOW); URINE GLUCOSE (UA) NORMAL (Normal); URINE KETONE NEGATIVE (NEGATIVE); URINE LEUKOCYTE ESTERASE NEG Leu/uL (Negative); URINE PROTEIN 2+ mg/dL (NEGATIVE); WBC URINE 2 /hpf (0-5)
[2017-06-22 16:05] LABS: CHLORIDE 99 mmol/L (98-107); POTASSIUM 3.9 mmol/L (3.6-5.2); SODIUM 137 mmol/L (132-148)
[2017-06-22 16:07] LABS: AST/SGOT 35 U/L (14-36); BILIRUBIN,TOTAL 1.7 mg/dL (0.2-1.3); CARBON DIOXIDE 23 mmol/L (22-30); GFR AFRICAN-AMERICAN > 60
[2017-06-22 16:08] LABS: ALB/GLOB RATIO 0.9 (1.0-2.1); ALKALINE PHOSPHATASE 129 U/L (38-126); ALT/SGPT 38 U/L (9-52); BLOOD UREA NITROGEN 15 mg/dL (7-17); GLUCOSE,RANDOM 177 mg/dL (65-105)
[2017-06-22 16:09] LABS: CALCIUM 9.3 mg/dl (8.6-10.4); INR 1.3
--- NOTE | 2017-06-22 16:30 | RAD ---
PROCEDURE: CHEST RADIOGRAPH, 1 VIEW HISTORY: chest pain COMPARISON: Comparison is made to the previous study dated 04/05/2017 FINDINGS: LUNGS: No evidence of new infiltrate or consolidation in the lungs. PLEURA: No pneumothorax or pleural fluid seen. CARDIOVASCULAR: The cardiac silhouette is mildly enlarged. Interval insertion of left-sided pacemaker since the previous exam. OSSEOUS STRUCTURES: No significant abnormalities. VISUALIZED UPPER ABDOMEN: Normal. OTHER FINDINGS: None. IMPRESSION: No active disease.
[2017-06-22 16:31] VITALS: BP 154/88; RESP 16; TEMP 97.7
[2017-06-22 16:36] VITALS: O2SAT 96
== END 2017-06-22 17:05 | disposition left against medical advice (07) ==
LOC: C.ER 13:48
DX: I13.0 Hypertensive heart and chronic kidney disease with heart failure and stage 1 through stage 4 chronic kidney disease, or unspecified chronic kidney disease (principal); I50.9 Heart failure, unspecified; E11.22 Type 2 diabetes mellitus with diabetic chronic kidney disease; N18.9 Chronic kidney disease, unspecified; M79.89 Other specified soft tissue disorders; Z95.0 Presence of cardiac pacemaker
CPT/HCPCS: 71010; 80053; 81001; 83880; 84484; 85025; 85610; 85730; 96374; 99284; J1940

== ENCOUNTER 2017-08-25 11:18 | Emergency (ER) | payer MEDICAID, OTHER ==
[2017-08-25 11:30] VITALS: BMI 32.5
[2017-08-25 11:37] VITALS: TEMP 98.6
--- NOTE | 2017-08-25 13:25 | C.PDOC ---
History Of Present Illness 62 y/o female presents to ED c/o right abdominal pain described as cramping. Notes she has not had a bowel movement in the past week. Also reports occasional vomiting. Denies fever, or other complaints. Time Seen by Provider: 08/25/17 13:22 Chief Complaint (Nursing): Back Pain History Per: Patient History/Exam Limitations: no limitations Past Medical History Reviewed: Historical Data, Nursing Documentation, Vital Signs Vital Signs: Last Vital Signs Temp 98.6 F 08/25/17 11:20 Pulse 61 08/25/17 15:08 Resp 18 08/25/17 15:08 BP 143/76 08/25/17 15:08 Pulse Ox 99 08/25/17 15:42 - Medical History PMH: Anemia, Anxiety, Bronchitis, Diabetes, Gastritis, HTN, Hypercholesterolemia , Pancreatitis, Peripheral Edema, Pneumonia, Chronic Kidney Disease Surgical History: Endoscopy - [facility] Procedures INSERT INFUSION DEV IN R INT JUGULAR VEIN, PERC (08/19/16) INSERTION OF ENDOTRACHEAL AIRWAY INTO TRACHEA, VIA OPENING (08/19/16) INTRODUCTION OF VASOPRESSOR INTO PERIPH VEIN, PERC APPROACH (08/19/16) PERFORMANCE OF CARDIAC OUTPUT, SINGLE, MANUAL (08/19/16) RESPIRATORY VENTILATION, GREATER THAN 96 CONSECUTIVE HOURS (08/19/16) Family History: States: Unknown Family Hx - Social History Hx Alcohol Use: No Hx Substance Use: No - Immunization History Hx Tetanus Toxoid Vaccination: No Hx Influenza Vaccination: No Hx Pneumococcal Vaccination: No Review Of Systems Except As Marked, All Systems Reviewed And Found Negative. Constitutional: Negative for: Fever, Chills Gastrointestinal: Positive for: Vomiting, Abdominal Pain, Constipation. Negative for: Diarrhea Genitourinary: Negative for: Dysuria, Frequency, Hematuria Musculoskeletal: Negative for: Back Pain Physical Exam - Physical Exam Appears: Non-toxic, No Acute Distress, Other (elderly female ) Skin: Warm, Dry, Other (stasis dermatitis to lower extremities) Head: Atraumatic, Normacephalic Eye(s): bilateral: Normal Inspection Oral Mucosa: Moist Neck: Normal ROM, Supple Chest: Symmetrical Cardiovascular: Rhythm Regular, No Murmur, No JVD Respiratory: Normal Breath Sounds, No Rales, No Rhonchi, No Wheezing Gastrointestinal/Abdominal: Bowel Sounds (dull to percussion), Soft, Tenderness (vague), No Guarding, No Rebound Back: No CVA Tenderness Extremity: Normal ROM, Pedal Edema (mild edema to mid [place] bilaterally), No Deformity Neurological/Psych: Oriented x3, Normal Speech ED Course And Treatment - Laboratory Results Result Diagrams: 08/25/17 13:56 08/25/17 14:33 Lab Interpretation: Normal ECG: Interpreted By Me ECG Rhythm: AV Paced ECG Interpretation: Normal Rate From EC O2 Sat by Pulse Oximetry: 99 Pulse Ox Interpretation: Normal - Radiology CXR: Interpreted by Me, Viewed By Me CXR Interpretation: Yes: No Acute Disease - Other Rad abd x 2 X-Ray: Interpreted by Me (+FOS) Progress Note: morphine, ativan Reevaluation Time: 15:56 Reassessment Condition: Improved Medical Decision Making Medical Decision Making: acute on chronic constipation Probably narcotics induced/related as no chronic pain issues requiring narcotics illicited from this pt. Disposition Doctor Will See Patient In The: Office Counseled Patient/Family Regarding: Studies Performed, Diagnosis - Disposition Disposition: HOSPITALIZED Disposition Time: 15:57 Condition: GOOD Forms: [facility] (Sami) - Clinical Impression Clinical Impression: History of abdominal colic - Scribe Statement The provider has reviewed the documentation as recorded by the Farhadibe Rashard Palm All medical record entries made by the Scribe were at my direction and personally dictated by me. I have reviewed the chart and agree that the record accurately reflects my personal performance of the history, physical exam, medical decision making, and the department course for this patient. I have also personally directed, reviewed, and agree with the discharge instructions and disposition.
[2017-08-25 13:59] LABS: BASO # 0.1 K/uL (0.0-0.2); BASO % 1.2 % (0.0-2.0); EOS % 0.2 % (0.0-4.0); HEMATOCRIT 44.2 % (34.0-47.0); LYMPH # 1.4 K/uL (1.0-4.3); LYMPH % 20.3 % (20.0-40.0); MEAN CELL VOLUME 83.1 fL (81.0-99.0); MEAN CORPUSCULAR HEMOGLOBIN 26.9 pg (27.0-31.0); MEAN CORPUSCULAR HGB CONC 32.4 g/dL (33.0-37.0); MEAN PLATELET VOLUME 9.2 fL (7.2-11.7); MONO # 0.4 K/uL (0.0-0.8); MONO % 6.4 % (0.0-10.0); NRBC % 0.2 % (0.0-2.0); RED CELL DISTRIBUTION WIDTH 16.8 % (11.5-14.5)
[2017-08-25 14:07] LABS: INR 1.2
[2017-08-25] MEDS ORDERED: Morphine 4 MG/ML VIAL ONE (14:09)
[2017-08-25 14:16] VITALS: RESP 18
--- NOTE | 2017-08-25 14:19 | RAD ---
PROCEDURE: CHEST RADIOGRAPH, 1 VIEW HISTORY: SOB COMPARISON: 06/22/2017. FINDINGS: LUNGS: The lungs are well inflated. There is mild pulmonary venous congestion. No focal consolidation. PLEURA: No pneumothorax or pleural fluid seen. CARDIOVASCULAR: There is stable cardiomegaly. There is stable position of a left-sided dual lead transvenous permanent pacing device. OSSEOUS STRUCTURES: No significant abnormalities. VISUALIZED UPPER ABDOMEN: Normal. OTHER FINDINGS: None. IMPRESSION: Persistent cardiomegaly and mild pulmonary venous congestion.
[2017-08-25 14:58] LABS: ALB/GLOB RATIO 0.8 (1.0-2.1); ALKALINE PHOSPHATASE 103 U/L (38-126); ALT/SGPT 21 U/L (9-52); AST/SGOT 30 U/L (14-36); BILIRUBIN,TOTAL 1.5 mg/dL (0.2-1.3); BLOOD UREA NITROGEN 12 mg/dL (7-17); CALCIUM 8.2 mg/dl (8.6-10.4); CARBON DIOXIDE 23 mmol/L (22-30); CHLORIDE 98 mmol/L (98-107); GFR AFRICAN-AMERICAN > 60; GLUCOSE,RANDOM 162 mg/dL (65-105); POTASSIUM 3.7 mmol/L (3.6-5.2); SODIUM 127 mmol/L (132-148); TOTAL PROTEIN 6.8 g/dL (6.3-8.3)
--- NOTE | 2017-08-25 15:38 | RAD ---
HISTORY: ? constip COMPARISON: No prior. FINDINGS: BOWEL: No evidence of bowel obstruction. There is mild retained fecal matter throughout the colon. There is no hepatic or splenic enlargement. There are no masses or abnormal intra-abdominal calcifications. BONES: Normal. OTHER FINDINGS: AICD noted. IMPRESSION: Retained feces. No evidence of bowel obstruction.
[2017-08-25 16:08] VITALS: BP 170/77; PULSE 63; O2SAT 98
--- NOTE | 2017-08-26 21:51 | CARD ---
APPROVED REPORT EKG Measurement Heart [id number] <Conclusion> Atrial-sensed ventricular-paced rhythm Abnormal ECG
== END 2017-08-25 16:25 | disposition home or self-care (01) ==
LOC: C.ER 11:18
DX: R10.84 Generalized abdominal pain (principal)
CPT/HCPCS: 71010; 74020; 80053; 83880; 84484; 85025; 85610; 85730; 93005; 96374; 96375; 99285; J2060; J2270

== ENCOUNTER 2017-08-28 16:33 | Emergency (ER) | payer OTHER ==
[2017-08-28 16:33] VITALS: BMI 32.5
[2017-08-28 16:56] VITALS: TEMP 98.2
--- NOTE | 2017-08-28 17:03 | C.PDOC ---
History Of Present Illness <Sp Velazquez - Last Filed: 08/28/17 17:06> <Daiana Ramirez - Last Filed: 08/29/17 04:39> 62 year old female with Hx of DM, pacemaker Sx has a presents to the ED c/o right flank pain. Patient states she was seen in the ED on 08/25 for similar symptoms and was d/c, she still complains of the same right flank pain with no relief. Patient states she has been feeling nauseous, vomiting and has not been able to eat for a couple of days. (Sp Velazquez) History Per: Patient History/Exam Limitations: no limitations Onset/Duration Of Symptoms: Days Current Symptoms Are (Timing): Still Present Location Of Pain/Discomfort: Other (Right flank) Radiation Of Pain To:: None Quality Of Discomfort: "Pain" Associated Symptoms: Nausea, Vomiting, Constipation Alleviating Factors: None Recent travel outside of the [place]: No Additional History Per: Patient Abnormal Vaginal Bleeding: No <Sp Velazquez - Last Filed: 08/28/17 17:06> <Daiana Ramirez - Last Filed: 08/29/17 04:39> Chief Complaint (Nursing): Abdominal Pain Past Medical History Reviewed: Historical Data, Nursing Documentation, Vital Signs - Medical History PMH: Anemia, Anxiety, Bronchitis, Diabetes, Gastritis, HTN, Hypercholesterolemia , Pancreatitis, Peripheral Edema, Pneumonia, Chronic Kidney Disease Surgical History: Endoscopy Family History: States: Unknown Family Hx - Social History Hx Alcohol Use: No Hx Substance Use: No - Immunization History Hx Tetanus Toxoid Vaccination: No Hx Influenza Vaccination: No Hx Pneumococcal Vaccination: No <Sp Velazquez - Last Filed: 08/28/17 17:06> Vital Signs: Last Vital Signs Temp 98.2 F 08/28/17 18:55 Pulse 60 08/28/17 19:24 Resp 16 08/28/17 19:24 BP 140/63 08/28/17 19:24 Pulse Ox 98 08/28/17 19:24 - [facility] Procedures INSERT INFUSION DEV IN R INT JUGULAR VEIN, PERC (08/19/16) INSERTION OF ENDOTRACHEAL AIRWAY INTO TRACHEA, VIA OPENING (08/19/16) INTRODUCTION OF VASOPRESSOR INTO PERIPH VEIN, PERC APPROACH (08/19/16) PERFORMANCE OF CARDIAC OUTPUT, SINGLE, MANUAL (08/19/16) RESPIRATORY VENTILATION, GREATER THAN 96 CONSECUTIVE HOURS (08/19/16) Review Of Systems Constitutional: Negative for: Fever, Chills Cardiovascular: Negative for: Chest Pain, Palpitations Respiratory: Negative for: Cough, Shortness of Breath Gastrointestinal: Positive for: Nausea, Vomiting, Abdominal Pain (Right flank ) Genitourinary: Negative for: Dysuria, Hematuria Musculoskeletal: Negative for: Back Pain Skin: Negative for: Rash Neurological: Negative for: Weakness, Numbness <Sp Velazquez - Last Filed: 08/28/17 17:06> Physical Exam - Physical Exam Appears: Non-toxic, In Acute Distress (secondary to pain) Skin: Warm, Dry, Other (Resolving edema on B/L legs) Head: Atraumatic, Normacephalic Nose: No Discharge Oral Mucosa: Moist, No Drooling Neck: Normal ROM, Supple Chest: Symmetrical Cardiovascular: Rhythm Regular, Murmur (Soft systolic) Respiratory: Decreased Breath Sounds ( bases), No Rales, No Rhonchi, No Wheezing Gastrointestinal/Abdominal: Soft, Tenderness (Right flank), No Distention, No Guarding, No Rebound Extremity: Normal ROM, Pedal Edema (Hyperpigmented ressolving ), No Calf Tenderness, No Deformity, Swelling Neurological/Psych: Oriented x3, Normal Speech, Normal Cognition <Sp Velazquez - Last Filed: 08/28/17 17:06> ED Course And Treatment O2 Sat by Pulse Oximetry: 98 (On RA) Pulse Ox Interpretation: Normal Progress Note: Plan: -Blood work, UA ordered. -Morphine 4 mg IV given. -IV fludis given. -Abdomen x-ray ordered <Sp Velazquez - Last Filed: 08/28/17 17:06> - Laboratory Results Result Diagrams: 08/28/17 18:33 08/28/17 18:33 <Daiana Ramirez - Last Filed: 08/29/17 04:39> Medical Decision Making <Sp Velazquez - Last Filed: 08/28/17 17:06> <Daiana Ramirez - Last Filed: 08/29/17 04:39> Medical Decision Making: On reevaluation patient c.o still of a persistent vague diffuse abdominal pain with no rebound. Lab work was unremarkable, she will be treated for chronic constipation, she will be provided instructions for proper care. (Daiana Ramirez) Disposition <Sp Velazquez - Last Filed: 08/28/17 17:06> - Disposition Disposition Time: 04:38 <Daiana Ramirez - Last Filed: 08/29/17 04:39> - Disposition Disposition: HOME/ ROUTINE Condition: GOOD Prescriptions: Peg Electrolyte Lavage Solut [Golytely] 4,000 ml PO DAILY PRN #1 bottle PRN Reason: Constipation Instructions: Constipation (ED), Abdominal Pain (ED) Forms: [employer] (Palestinian) - Clinical Impression Clinical Impression: Constipation - Scribe Statement The provider has reviewed the documentation as recorded by the Scribe <Sp Velazquez - Last Filed: 08/28/17 17:06> <Daiana Ramirez - Last Filed: 08/29/17 04:39> - Scribe Statement Fabien Israel All medical record entries made by the Scribe were at my direction and personally dictated by me. I have reviewed the chart and agree that the record accurately reflects my personal performance of the history, physical exam, medical decision making, and the department course for this patient. I have also personally directed, reviewed, and agree with the discharge instructions and disposition. (Sp Velazquez)
[2017-08-28] MEDS ORDERED: Sodium Chloride 0.9% 1,000 ML IV STA (17:06)
[2017-08-28] MEDS ORDERED: Morphine 4 MG/ML VIAL IV STA (17:08)
[2017-08-28] MEDS ORDERED: Morphine 4 MG/ML VIAL ONE (17:23)
[2017-08-28] MEDS ORDERED: Sodium Chloride 0.9% 1,000 ML ONE (17:23)
[2017-08-28 17:48] LABS: RBC URINE 5 /hpf (0-3); URINE BILIRUBIN NEGATIVE (NEGATIVE); URINE BLOOD 1+ (NEGATIVE); URINE COLOR Yellow (YELLOW); URINE GLUCOSE (UA) 1+ mg/dL (Normal); URINE KETONE TRACE mg/dL (NEGATIVE); URINE LEUKOCYTE ESTERASE NEG Leu/uL (Negative); URINE PROTEIN 3+ mg/dL (NEGATIVE); URINE UROBILINOGEN NORMAL mg/dL (0.2-1.0); WBC URINE < 1 /hpf (0-5)
--- NOTE | 2017-08-28 18:31 | RAD ---
HISTORY: pain COMPARISON: No prior. FINDINGS: BOWEL: [id number] rectosigmoid fecal impaction appears to have developed with gaseous distention appearing [id number] throughout the remaining small large-bowel loops. Bowel does not appear to be mechanically obstructed nevertheless. Clinically correlate further. No free intraperitoneal gas. Phlebolith like calcifications are suggested the inferior pelvic soft tissues. BONES: Normal. OTHER FINDINGS: None. IMPRESSION: Limited distal rectal fecal impaction is felt to be present. Mild gaseous distention of small large-bowel loops is otherwise evident but a mechanical bowel obstruction is not felt to present nevertheless.
[2017-08-28 18:42] LABS: BASO % 0.4 % (0.0-2.0); EOS % 0.6 % (0.0-4.0); HEMATOCRIT 42.1 % (34.0-47.0); LYMPH # 1.4 K/uL (1.0-4.3); LYMPH % 23.2 % (20.0-40.0); MEAN CELL VOLUME 82.7 fL (81.0-99.0); MEAN CORPUSCULAR HEMOGLOBIN 27.4 pg (27.0-31.0); MEAN CORPUSCULAR HGB CONC 33.1 g/dL (33.0-37.0); MEAN PLATELET VOLUME 8.7 fL (7.2-11.7); MONO # 0.7 K/uL (0.0-0.8); NRBC % 0.1 % (0.0-2.0); RED CELL DISTRIBUTION WIDTH 16.9 % (11.5-14.5); WHITE BLOOD COUNT 5.9 K/uL (4.8-10.8)
[2017-08-28 18:57] LABS: ALB/GLOB RATIO 0.9 (1.0-2.1); ALKALINE PHOSPHATASE 102 U/L (38-126); ALT/SGPT 36 U/L (9-52); AST/SGOT 29 U/L (14-36); BILIRUBIN,TOTAL 1.5 mg/dL (0.2-1.3); BLOOD UREA NITROGEN 9 mg/dL (7-17); CALCIUM 8.6 mg/dl (8.6-10.4); CARBON DIOXIDE 28 mmol/L (22-30); CHLORIDE 101 mmol/L (98-107); GFR AFRICAN-AMERICAN > 60; GLUCOSE,RANDOM 216 mg/dL (65-105); POTASSIUM 3.6 mmol/L (3.6-5.2); SODIUM 138 mmol/L (132-148); TOTAL PROTEIN 7.2 g/dL (6.3-8.3)
[2017-08-28] MEDS ORDERED: Peg-Electrolyte Oral Soln 4L (Golytely) PO ONE (19:40)
[2017-08-28 20:24] VITALS: BP 140/63; PULSE 60; RESP 16; O2SAT 98
== END 2017-08-28 20:24 | disposition home or self-care (01) ==
LOC: C.ER 16:33
DX: K59.00 Constipation, unspecified (principal); E11.9 Type 2 diabetes mellitus without complications; E78.00 Pure hypercholesterolemia, unspecified; I12.9 Hypertensive chronic kidney disease with stage 1 through stage 4 chronic kidney disease, or unspecified chronic kidney disease; N18.9 Chronic kidney disease, unspecified
CPT/HCPCS: 36415; 74000; 80053; 81001; 83605; 83690; 85025; 96374; 99284; J2270; J7040